=== PATIENT | female | born 1975 | race Caucasian/White ===

== ENCOUNTER → 2022-08-21 | Outpatient (CLI) | payer OTHER, SELFPAY ==
[2022-08-21 11:05] LABS: Anion Gap 5 (5-15); BUN 18 mg/dL (7-18); BUN/Creat Ratio 21.9 RATIO (10-20); Calcium,Total 8.9 mg/dL (8.5-10.1); Chloride 108 mmol/L (98-107); Cholesterol 196 mg/dL (200); Creatinine, Serum 0.82 mg/dL (0.55-1.02); EST Glomerular Filtration Rate 80 mL/min (>60); Est Glom Filt Rate - Afr Amer 97 mL/min (>60); Glucose 104 mg/dL (74-106); High Density Lipoprotein 42 mg/dL; Potassium 4.4 mmol/L (3.5-5.1); Sodium Level 137 mmol/L (136-145); Triglycerides 156 mg/dL; Very Low Density Lipoprotein 31 mg/dL (5-40)
== END | disposition home or self-care (01) ==
LOC: LAB 10:12
PROVIDERS: Referring Provider Internal Medicine Cardiovascular Disease; Visit Provider Internal Medicine Cardiovascular Disease
DX: I10 Essential (primary) hypertension (principal)
CPT/HCPCS: 36415; 80048; 80061

== ENCOUNTER → 2022-08-29 | Outpatient (CLI) | payer OTHER, SELFPAY ==
--- NOTE | 2022-08-29 06:17 | ECHOD_ITS ---
Reason For Study: RODRIGUEZ Procedure This was a 2D Doppler, Color Flow transthoracic echocardiogram. Exam performed in department. Left Ventricle Normal left ventricle. The left ventricular ejection fraction is 65 %. Right Ventricle Normal right ventricle. Atria The left and right atria are normal. Mitral Valve The mitral valve is structurally normal. No prolapse or stenosis seen. Tricuspid Valve Normal tricuspid valve. Aortic Valve Normal aortic valve. Pulmonic Valve The pulmonic valve is not well visualized. Great Vessels Normal sized aortic root. Pericardium/Pleural No pericardial effusion. MMode/2D Measurements & Calculations LVIDd: 4.6 cm IVSd: 1.0 cm Ao root diam: 3.2 cm LVIDs: 3.1 cm LVPWd: 0.91 cm FS: 31.8 % LAV(MOD-sp4): 42.9 ml LVAd ap4: 31.7 cm2 SV(MOD-sp4): 66.5 ml LVLd ap4: 7.9 cm EDV(MOD-sp4): 104.2 ml EDV(sp4-el): 108.8 ml LVAs ap4: 16.7 cm2 LVLs ap4: 6.2 cm ESV(MOD-sp4): 37.7 ml ESV(sp4-el): 38.0 ml EF(MOD-sp4): 63.8 % EF(sp4-el): 65.1 % SV(sp4-el): 70.8 ml LA A4 area: 16.0 cm2 LA dimension(2D): 3.7 cm RA A4 area: 13.0 cm2 Time Measurements MV dec time: 0.24 sec Doppler Measurements & Calculations MV E max jayjay: 83.3 cm/sec Lat Peak E' Jayjay: 14.3 cm/sec Med Peak E' Jayjay: 8.9 cm/sec MV A max jayjay: 80.8 cm/sec E/E' lat: 5.8 E/E' med: 9.4 MV E/A: 1.0 MV V2 max: 83.8 cm/sec Ao V2 max: 133.9 cm/sec MV max P.8 mmHg MV dec slope: 350.0 cm/sec2 Ao max P.2 mmHg MV V2 mean: 59.3 cm/sec Ao V2 mean: 94.0 cm/sec MV mean P.5 mmHg Ao mean P.0 mmHg MV V2 VTI: 29.1 cm Ao V2 VTI: 30.6 cm AV (velocity ratio): 0.81 LV V1 max: 118.0 cm/sec PA V2 max: 115.1 cm/sec LV V1 max P.6 mmHg PA V2 mean: 76.0 cm/sec LV V1 mean P.0 mmHg LV V1 mean: 81.0 cm/sec LV V1 VTI: 24.8 cm ECHO/Echo Complete Interpretation Summary The left ventricular ejection fraction is 65 %. Ordering Physician: Alisha Lemon Referring Physician: GORDO SILVA Performed By: Genia Doe RCS
--- NOTE | 2022-08-29 14:45 | STRESSREP_ITS ---
Stress Test Report Date: 08/29/2022 Procedure: Exercise tolerance test/imaging study Indications: Chest pain Consent: Per the patient Procedure: The patient exercised on a Yfn protocol for 6 achieving a peak heart rate of 144 bpm (81% predicted maximal heart rate) with a peak blood pressure 192/74 mmHg and a peak MET capacity of 7 METs. The baseline ECG demonstrated normal sinus rhythm. The peak exercise ECG demonstrated sinus tachycardia with no ischemic changes. There were no cardiac dysrhythmias pretest, during exercise, or recovery. The functional capacity was considered below average. There was complained of sharp chest pain during exercise. The examination was discontinued secondary to target heart rate being achieved. The patient was injected with 14.8 mCi of technetium 99m Cardiolite and subsequently rest SPECT Cardiolite nuclear imaging was obtained in the horizontal long, vertical long, and short axis views. Post-exercise, the patient was injected with 44.5 mCi of technetium 99m Cardiolite and subsequently stress SPECT Cardiolite nuclear imaging was obtained in the horizontal long, vertical long, and short axis views. A gated Cardiolite study at peak stress was obtained. Rest and stress SPECT Cardiolite nuclear imaging status post realignment, normalization, and attenuation correction, demonstrates the appearance of relative uniform tracer uptake and myocardial perfusion appearing within normal limits. There is end systolic thickening and brightening. The gated Cardiolite study demonstrates myocardial thickening and inward wall motion. The reported LVEF is 72%. Impression: 1. Technically adequate (percent predicted maximal heart rate greater than 85%) exercise tolerance test 2. Peak exercise ECG no ischemic changes 3. There were no cardiac dysrhythmias pretest, during exercise, or recovery 4. Rest and stress SPECT Cardiolite nuclear imaging demonstrate no fixed or reversible perfusion defects. 5. The gated Cardiolite study reports an LVEF of 72%. This note was generated with [employer] software. It may contain incorrect words, spelling, and punctuation that were not noted in checking the note before signing.
== END | disposition home or self-care (01) ==
LOC: CVS 06:17
PROVIDERS: PCP Internal Medicine; Visit Provider Internal Medicine Cardiovascular Disease
DX: R06.00 Dyspnea, unspecified (principal); R07.9 Chest pain, unspecified
CPT/HCPCS: 78452; 93017; 93306; A9500; A4216

== ENCOUNTER → 2022-09-28 | Outpatient (CLI) | payer OTHER, SELFPAY ==
[2022-09-28 12:15] LABS: Absolute Lymphocyte Count 1.37 X10^3/uL (0.83-4.51); Absolute Neutrophil Count 2.9 X10^3/uL (2.0-7.7); Basophil# 0.04 X10^3/uL; Basophil% 0.8 % (0-1); Eosinophil# 0.12 X10^3/uL; Eosinophils% 2.5 % (0-5); Hematocrit 34.5 % (37-47); Hemoglobin 10.7 g/dL (12.0-15.0); Lymphocyte # 1.37 X10^3/ul (0.83-4.51); Lymphocyte % 28.3 % (19-41); Mean Corpuscular Hgb 24.9 pg (27.0-32.0); Mean Corpuscular Volume 80.2 fL (81-99); Monocyte# 0.36 X10^3/uL; Monocyte% 7.4 % (0-10); NRBC Flagged by Analyzer 0 % (0-5); Neutrophil # 2.93 X10^3/uL (2.7-7.7); Neutrophil % 60.6 % (47-70); Platelet Count 342 K/mm3 (150-450); RBC Distribution Width CV 15.2 % (11.6-14.6); RBC Distribution Width SD 44.4 fl (35.1-43.9); White Blood Count 4.8 K/mm3 (4.4-11.0)
[2022-09-28 12:29] LABS: Anion Gap 5 (5-15); BUN 20 mg/dL (7-18); BUN/Creat Ratio 23.4 RATIO (10-20); Calcium,Total 9.8 mg/dL (8.5-10.1); Chloride 104 mmol/L (98-107); Creatinine, Serum 0.85 mg/dL (0.55-1.02); EST Glomerular Filtration Rate 77 mL/min (>60); Est Glom Filt Rate - Afr Amer 93 mL/min (>60); Glucose 110 mg/dL (74-106); Potassium 3.7 mmol/L (3.5-5.1); Sodium Level 137 mmol/L (136-145)
[2022-09-28 13:42] LABS: Vitamin D,25 Hydroxy 15.7 ng/mL
== END | disposition home or self-care (01) ==
LOC: BIMLAB 10:48
PROVIDERS: Internal Medicine Cardiovascular Disease; PCP Internal Medicine; Referring Provider Internal Medicine; Visit Provider Internal Medicine
DX: I10 Essential (primary) hypertension (principal); F41.9 Anxiety disorder, unspecified
CPT/HCPCS: 36415; 80048; 82306; 85025

== ENCOUNTER → 2022-10-05 | Outpatient (CLI) | payer OTHER, SELFPAY ==
--- NOTE | 2022-10-05 11:42 | BI_ITS ---
MAMMOGRAPHY - BILATERAL SCREENING 3-D TOMOSYNTHESIS REASON FOR EXAM: Female, 46 years old. Routine screening PERTINENT HISTORY: Grandmother with breast cancer.. TECHNIQUE: 2-D mammograms and 3-D Tomosynthesis of the breast (s) were performed. CAD was performed. COMPARISON: None. Baseline examination. FINDINGS: The breast composition is composed of scattered fibroglandular density. Scattered benign calcifications are seen. No dense spiculated masses or suspicious microcalcifications are identified. No architectural distortion is identified. There is no skin thickening or retraction. BI/SCRN MAMM (CAD)W/ESTEPHANIE BILAT IMPRESSION: No mammographic signs of malignancy. Routine yearly mammograms recommended. ASSESSMENT CATEGORY: BIRADS Category 2: Benign. A letter regarding these results will be sent to the patient by the facility within 30 days. FOLLOW UP RECOMMENDATION: Yearly follow up mammogram recommended. (A) Approximately 10% of breast cancers are not detected by mammography. A normal mammogram should not delay biopsy of a clinically suspicious abnormality. Electronically Signed: Nabil Dover MD at 12:48 EDT ,
== END | disposition home or self-care (01) ==
LOC: OPBI 11:41
PROVIDERS: PCP Internal Medicine; Referring Provider Internal Medicine; Visit Provider Internal Medicine
DX: Z12.31 Encounter for screening mammogram for malignant neoplasm of breast (principal)
CPT/HCPCS: 77063; 77067

== ENCOUNTER → 2023-08-16 | Outpatient (CLI) | payer BC, SELFPAY ==
--- OUTSIDE RECORDS SUMMARY | 2023-08-16 11:55 | XMS RPT_ITS | CCD ---
Author Name Unknown Address [address] [place] [address] Organization [facility] Care Team Providers Care Rn Faculty Name Role Phone Arlyn Gutierrez Unavailable Gutierrez Arlyn D Unavailable Unavailable Gutierrez Arlyn D Unavailable Unavailable Leann, Edin Unavailable Unavailable Leann, Edin Unavailable Unavailable Leann, Edin Unavailable Unavailable Leann, Edin Unavailable Unavailable Deeser, Alisha S Unavailable Unavailable Deeser, Alisha S Unavailable Unavailable No Doctor Assigned, Nodr Unavailable Unavail able Aden Mandeep Unavailable Unavailable Bitner, Mandeep Unavailable Unavailable No Doctor Assigned, Nodr Unavailable Unavail able Bitner, Mandeep Unavailable Unavailable Bitner, Mandeep Unavailable Unavailable No Doctor Assigned, Nodr Unavailable Unavail able Arlyn Gutierrez Primary Care Provider BRISEYDA WALKER Admitting Unavailable BRISEYDA WALKER Attending Unavailable JUAN A PAZ Referring Unav ailable GutierrezArlyn sanchez Primary Care Provider ARLYN GUTIERREZ Admitting Unavailable GUTIERREZARLYN SANCHEZ Primary Care Unavailable GUTIERREZARLYN SANCHEZ Admitting Unavailable GUTIERREZ, ARLYNMichell AVENDANO Primary Care Unavailable Free, Text Entry Unavailable Unavailable Jazzmine rEazo Unavailable Unavailabl e Gutierrez Arlyn RIVERA Primary Care Provider ARLYN GUTIERREZ Attending Unavailable ARLYN GUTIERREZ Primary Care Unavailable Rubén Garcia Unavailable Unavailable AYANA PEOPLES Attending Unavailab NOHEMI Mak Primary Care Unavailable SCARLETT SUMMERS Referring Unavailable NICHELLE PHILLIPS Attending Unavailable Allergies Allergy Classification Reported Allergen(s) Allergy Type Date of Onset Reaction(s) Facility (18 sources) ciprofloxacin; Translations: [Unknown] Propensity to adverse reactions to drug 05-22-20 12 [facility] (19 sources) penicillin; Translations: [penicillin] Propensity to adverse reactions to drug 08-13-19 24 [facility] (17 sources) penicillin g; Translations: [PENICILLIN G] Propensity to adverse reactions to drug 06-07-20 11 [facility] (13 sources) Penicillins; Translations: [PENICILLINS] Propensity to adverse reactions to drug [facility] (17 sources) sulfamethoxazole / trimethoprim; Translations: [SULFAMETHOXAZOLE-T RIMETHOPRIM] Propensity to adverse reactions to drug [facility] (14 sources) Sulfonamides (Antibiotic); Translations: [SULFA (SULFONAMIDE ANTIBIOTICS)] Propensity to adverse reactions to drug 06-07-20 11 [facility] (3 sources) Sulfonamides (Antibiotic); Translations: [sulfa drugs] Propensity to adverse reactions to drug (disorder) [facility], Hives/Urticari a [facility] Repository (2 sources) Penicillin Drug Allergy Hives/Urticari a [facility] (4 sources) Penicillins Propensity to adverse reactions to drug [facility] (4 sources) Sulfonamides (Antibiotic) Propensity to adverse reactions to drug 06-07-20 11 [facility] (1 source) ALLERGIES NOT ON FILE; Translations: [ALLERGIES NOT ON FILE] Propensity to adverse reactions (disorder) [facility] 2 Repository Medications Current Medications Medication Drug Class(es) Dates Sig (Normalized) Sig (Original) azithromycin 250 mg oral tablet (3 sources) Macrolide Antimicrobial Start: 10-25-2021 take 2 tablets by mouth once, then take 1 tablet by mouth once daily azithromycin 250 mg oral tablet ; Take 2 tabs (500mg) x 1 days, then 1 tab (250mg) once daily x 4 days Quantity: 6 Refills: 0 Ordered: 25-Oct-2021 Rubén Garcia Start: 25-Oct-2021 Generic Substitution Allowed Comments: Do not take dairy products, antacids, or iron preparations within one hour of this medication.Finish all this medication unless otherwise directed by prescriber. Completed/Discontinued Medications Medication Drug Class(es) Dates Sig (Normalized) Sig (Original) [id number] 200 actuat albuterol 0.09 mg/actuat metered dose inhaler (1 source) beta2-Adrenergic Agonist Start: 10-25-2021 take 2 puff(s) by inhalation twice daily as needed for cough albuterol 90 mcg/inh inhalation aerosol ; 2 puff(s) inhaled 2 times a day as needed for cough Quantity: 8.5 Refills: 0 Ordered: 25-Oct-2021 Rubén Garcia Start: 25-Oct-2021 Generic Substitution Allowed Comments: For inhalation only.It is very important that you take or use this exactly as directed. Do not skip doses or discontinue unless directed by your doctor.Obtain medical advice before taking any non-prescription drugs as some may affect the action of this medication.Shake well before use. Problems Active Problems Problem Classification Problem Date Documented Da te Episodic/Chronic Anxiety disorders (10 sources) Mixed anxiety and depressive disorder; Translations: [Anxiety disorder, unspecified] Onset: 05-25-2020 05-25-2020 Chronic Essential hypertension (18 sources) Hypertensive disorder; Translations: [Essential (primary) hypertension] 11-27-2017 Chronic Other connective tissue disease (2 sources) Pain in right foot; Translations: [Pain in right foot] Onset: 07-27-2023 Episodic Other lower respiratory disease (5 sources) Multiple nodules of lung; Translations: [Other nonspecific abnormal finding of lung field] Onset: 06-13-2021 05-05-2021 Episodic Other lower respiratory disease (2 sources) Shortness of breath; Translations: [Shortness of Breath] Onset: 08-13-2023 Episodic Other screening for suspected conditions (not mental disorders or infectious disease) (1 source) Abnormal radiologic density, nodular; Translations: [Abnormal findings on diagnostic imaging of other specified body structures] Chronic Other upper respiratory infections (2 sources) Upper respiratory infection 10-25-2021 Episodic Past or Other Problems Problem Classification Problem Date Documented Da te Episodic/Chronic Malaise and fatigue (7 sources) Fatigue; Translations: [Other fatigue] Onset: 12-17-2019 12-17-2019 Episodic Viral infection (4 sources) Disease caused by 2019-nCoV; Translations: [Other specified viral infection] Onset: 06-13-2021 05-05-2021 Episodic Results Test Name Value Interpretation Reference Range Facil ity Vital Signs Date Time Vital Sign Value Performing Clinician Facility 10-25-2021 13:26-0400 Body height 168 cm Text Entry [facility] 10-25-2021 [id number] Body temperature 97.88 [degF] Text Entry [facility] 10-25-2021 13:26-0400 Diastolic blood pressure 78 mm[Hg] Text Entry [facility] 10-25-2021 13:26-0400 Heart rate 74 /min Text Entry [facility] 10-25-2021 13:26-0400 SaO2% (BldA) [Mass fraction] 96 % Text Entry [facility] 10-25-2021 13:26-0400 Systolic blood pressure 129 mm[Hg] Text Entry [facility] 06-13-2021 10:48-0500 Body height 167.6 cm Arlyn Gutierrez [employer] WORK[employer] Work Phone: [facility] 06-13-2021 10:48-0500 Body mass index (BMI) [Ratio] 44.55 kg/m2 Arlyn Gutierrez [employer] WORK[employer] Work Phone: [facility] 06-13-2021 10:48-0500 Body temperature 97.39 [degF] Arlyn Gutierrez [employer] OUT WORKER Work Phone: [facility] 06-13-2021 10:48-0500 Body weight 125.19 kg Arlyn Yinon [employer] OUT WORKER Work Phone: [facility] 06-13-2021 10:48-0500 Diastolic blood pressure 77 mm[Hg] Arlyn Gutierrez [employer] OUT WORK[employer] Work Phone: [facility] 06-13-2021 10:48-0500 Heart rate 79 /min Arlyn Gutierrez [employer] OUT WORK[employer] Work Phone: [facility] 06-13-2021 10:48-0500 Respiratory rate 16 /min Arlyn Gutierrez [employer] OUT WORK[employer] Work Phone: [facility] 06-13-2021 10:48-0500 SaO2% (BldA) [Mass fraction] 98 % Arlyn Gutierrez [employer] OUT WORK[employer] Work Phone: [facility] 06-13-2021 10:48-0500 Systolic blood pressure 122 mm[Hg] Arlyn Gutierrez [employer] OUT WORKER Work Phone: [facility] 05-05-2021 23:30-0400 Diastolic blood pressure 83 mm[Hg] Text Entry [facility] 05-05-2021 23:30-0400 Heart rate 63 /min Text Entry [facility] 05-05-2021 23:30-0400 Respiratory rate 16 /min Text Entry [facility] 05-05-2021 23:30-0400 SaO2% (BldA) [Mass fraction] 98 % Text Entry [facility] 05-05-2021 23:30-0400 Systolic blood pressure 151 mm[Hg] Text Entry [facility] 05-05-2021 17:39-0400 Body height 167.6 cm Text Entry [facility] 05-05-2021 17:39-0400 Body temperature 98.06 [degF] Text Entry [facility] 05-05-2021 17:39-0400 Body weight 113.6 kg Text Entry [facility] 05-25-2020 15:46-0500 BP Diastolic 91 mm[Hg] Arlyn Gutierrez [facility] 05-25-2020 15:46-0500 BP Systolic 159 mm[Hg] Arlyn Gutierrez [facility] 05-25-2020 15:40-0500 BMI (Body Mass Index) 42.61 kg/m2 Arlyn Gutierrez [facility] 05-25-2020 15:40-0500 Body Temperature 98.1 [degF] Arlyn Gutierrez [facility] 05-25-2020 15:40-0500 Body weight 119.75 kg Arlyn Gutierrez [facility] 05-25-2020 15:40-0500 Height 167.6 cm Arlyn Gutierrez [facility] 05-25-2020 15:40-0500 Pulse (Heart Rate) 79 /min Arlyn Gutierrez [facility] 05-25-2020 15:40-0500 Pulse Oximetry 98 % Arlyn Gutierrez [facility] 05-25-2020 15:40-0500 Respiratory Rate 16 /min Arlyn Gutierrez [facility] 11-14-2018 10:08-0400 BMI (Body Mass Index) 39.22 kg/m2 [facility] 11-14-2018 10:08-0400 Body Temperature 97.9 [degF] [facility] 11-14-2018 10:08-0400 BP Diastolic 81 mm[Hg] [facility] 11-14-2018 10:08-0400 BP Systolic 127 mm[Hg] [facility] 11-14-2018 10:08-0400 Height 167.6 cm [facility] 11-14-2018 10:08-0400 Pulse (Heart Rate) 78 /min [facility] 11-14-2018 10:08-0400 Pulse Oximetry 96 % [facility] 11-14-2018 10:08-0400 Respiratory Rate 14 /min [facility] 11-14-2018 10:08-0400 Weight 110.22 kg [facility] 12-04-2017 11:37-0400 BMI (Body Mass Index) 41.64 kg/m2 [facility] 12-04-2017 11:37-0400 BP Diastolic 88 mm[Hg] [facility] 12-04-2017 11:37-0400 BP Systolic 149 mm[Hg] [facility] 12-04-2017 11:37-0400 Height 167.6 cm [facility] 12-04-2017 11:37-0400 Pulse (Heart Rate) 87 /min [facility] 12-04-2017 11:37-0400 Weight 117.03 kg [facility] 11-27-2017 14:20-0400 BMI (Body Mass Index) 41.74 kg/m2 [facility] 11-27-2017 14:20-0400 BP Diastolic 96 mm[Hg] [facility] 11-27-2017 14:20-0400 BP Systolic 154 mm[Hg] [facility] 11-27-2017 14:20-0400 Height 167.6 cm [facility] 11-27-2017 14:20-0400 Pulse (Heart Rate) 89 /min [facility] 11-27-2017 14:20-0400 Pulse Oximetry 97 % [facility] 11-27-2017 14:20-0400 Weight 117.3 kg Edin Noriega [facility] 11-15-2017 14:41-0400 BP Diastolic 90 mm[Hg] Arlyn Gutierrez [facility] 11-15-2017 14:41-0400 BP Systolic 140 mm[Hg] Arlyn Gutierrez [facility] 11-15-2017 14:41-0400 Pulse (Heart Rate) 96 /min Arlyn Gutierrez [facility] 11-15-2017 14:41-0400 Weight 117.48 kg Arlyn Gutierrez [facility] Encounters Encounter Date Encounter Type Care Provider Facility Start: 08-13-2023 End: 08-13-2023 ambulatory [facility] Ambulatory Start: 07-27-2023 End: 07-28-2023 ambulatory SCARLETT Cordoba [facility] Start: 12-03-2022 End: 12-03-2022 Emergency department patient visit [facility] Start: 11-09-2021 Orders Only Arlyn Avendano Cynthia erson [employer] OUT WORKER Work Phone: [facility] Primary Care Procedures Date Procedure Procedure Detail Performing Clinician Start: 07-27-2023 XR FOOT RIGHT 3+ VIEWS SCARLETT SUMMERS Start: 05-05-2021 End: 05-05-2021 EKG impression Murtaza Huston Start: 12-07-2017 End: 12-07-2017 Tte w/doppler, complete Edin Noriega Work Phone: Start: 12-04-2017 End: 12-04-2017 Cardiovascular stress test Edin Noriega Work Phone: Start: 07-23-2016 Microscopic observat ion [Identifier] in Cervix by Cyto stain Arlyn Gutierrez Plan of Treatment Date Care Activity Detail Author Start: 06-13-2022 COVID-19 Vaccine (1) COVID-19 Vaccin e (1) [facility] Payers Date Payer Category Payer Unknown [id number] 2021 Unknown 2021 Unknown [id number] 2017 Private Health Insurance 2017 Unknown [id number] 1975 Unknown [id number] 1975 Unknown [id number] 1975 Unknown [id number] 1975 Unknown [id number] 1975 Unknown [id number] Social History Date Type Detail Facility Start: 11-15-2017 End: 12-04-2017 Tobacco smoking status HIIS Never smoker [facility] Start: 1975 Sex Assigned At Not on file [facility] Start: 11-15-2017 End: 05-25-2020 Tobacco use and exposure Never used [facility] Start: 05-25-2020 End: 06-13-2021 Alcohol intake Current non-drinker of alcohol (finding) [facility] Start: 12-17-2019 End: 05-25-2020 History SDOH Social Connections Get Together 2 [facility] Start: 05-25-2020 [facility] Start: 12-17-2019 End: 05-25-2020 History SDOH Food Worry 1 [facility] Exposure to SARS-CoV -2 (event) Not sure [facility] Tobacco smoking consumption unknown [facility] Exposure to SARS-CoV -2 (event) Yes [facility] Note 06-13-2021 Assessment & Plan Note - Arlyn Gutierrez CNP - 06/13/2021 11:37 AM ESTAssessment & Plan Note - Arlyn Gutierrez CNP - 06/13/2021 11:36 AM EST Note Date & Type Note Facility 06-13-2021 Miscellaneous Notes Associated Problem(s): Anxiety and depression Stable sertraline managing symptoms well. Continue current dose of 50 Mg daily Associated Problem(s): Hypertension Stable well controlled in office today Have fasting labs done prior to next visit Associated Problem(s): Pulmonary nodules Lung nodules seen on CT at [facility] when diagnosed with Covid. Most likely from Covid but to have repeat scan to make sure. Will obtain ER records and proceed from there. Associated Problem(s): COVID-19 covid infection in April 2021 and presented to [facility]. She still endorses fatigue and shortness of breath with moderate activity but getting better. documented in this encounter [facility] Instructions 06-13-2021 Patient Instructions Note Date & Type Note Facility 06-13-2021 Instructions Arlyn Gutierrez CNP - 06/13/2021 11:20 AM EST Images from the original note were not included. Problem List Items Addressed This Visit Cardiovascular and Mediastinum Hypertension Stable well controlled in office today Have fasting labs done prior to next visit Relevant Medications labetaloL (NORMODYNE) 200 MG tablet Other Relevant Orders CBC and Differential Comprehensive Metabolic Panel Lipid Panel Other Anxiety and depression Stable sertraline managing symptoms well. Continue current dose of 50 Mg daily Relevant Medications sertraline (ZOLOFT) 50 MG tablet Wellness examination - Primary Pulmonary nodules Lung nodules seen on CT at [facility] when diagnosed with Covid. Most likely from Covid but to have repeat scan to make sure. Will obtain ER records and proceed from there. COVID-19 covid infection in April 2021 and presented to [facility]. She still endorses fatigue and shortness of breath with moderate activity but getting better. If any referrals were placed at today's visit the patient was instructed to call the office if they havn't heard anything about the referral within 2 weeks of today's visit. For any new medications prescribed today, patient was educated about indications for the medication, how to take the medication and potential side effects of the medications. Well Visit, Ages 18 to 50: Care Instructions Overview Well visits can help you stay healthy. Your doctor has checked your overall health and may have suggested ways to take good care of yourself. Your doctor also may have recommended tests. At home, you can help prevent illness with healthy eating, regular exercise, and other steps. Follow-up care is a part of your treatment and safety. Be sure to make and go to all appointments, and call your doctor if you are having problems. It's also a good idea to know your test results and keep a list of the medicines you take. How can you care for yourself at home? Get screening tests that you and your doctor decide on. Screening helps find diseases before any symptoms appear. Eat healthy foods. Choose fruits, vegetables, whole grains, protein, and low-fat dairy foods. Limit fat, especially saturated fat. Reduce salt in your diet. Limit alcohol. If you are a man, have no more than 2 drinks a day or 14 drinks a week. If you are a woman, have no more than 1 drink a day or 7 drinks a week. Get at least 30 minutes of physical activity on most days of the week. Walking is a good choice. You also may want to do other activities, such as running, swimming, cycling, or playing tennis or team sports. Discuss any changes in your exercise program with your doctor. Reach and stay at a healthy weight. This will lower your risk for many problems, such as obesity, diabetes, heart disease, and high blood pressure. Do not smoke or allow others to smoke around you. If you need help quitting, talk to your doctor about stop-smoking programs and medicines. These can increase your chances of quitting for good. Care for your mental health. It is easy to get weighed down by worry and stress. Learn strategies to manage stress, like deep breathing and mindfulness, and stay connected with your family and community. If you find you often feel sad or hopeless, talk with your doctor. Treatment can help. Talk to your doctor about whether you have any risk factors for sexually transmitted infections (STIs). You can help prevent STIs if you wait to have sex with a new partner (or partners) until you've each been tested for STIs. It also helps if you use condoms (male or female condoms) and if you limit your sex partners to one person who only has sex with you. Vaccines are available for some STIs, such as HPV. Use control if it's important to you to prevent . Talk with your doctor about the choices available and what might be best for you. If you think you may have a problem with alcohol or drug use, talk to your doctor. This includes prescription medicines (such as amphetamines and opioids) and illegal drugs (such as cocaine and methamphetamine). Your doctor can help you figure out what type of treatment is best for you. Protect your skin from too much sun. When you're outdoors from 10 a.m. to 4 p.m., stay in the shade or cover up with clothing and a hat with a wide brim. Wear sunglasses that block UV rays. Even when it's cloudy, put broad-spectrum sunscreen (SPF 30 or higher) on any exposed skin. See a dentist one or two times a year for checkups and to have your teeth cleaned. Wear a seat belt in the car. When should you call for help? Watch closely for changes in your health, and be sure to contact your doctor if you have any problems or symptoms that concern you. Where can you learn more? Log into your personal health record on https://CytoPherxt.Food52 and enter P072 in the Education box to learn more about Well Visit, Ages 18 to 50: Care Instructions. Current as of: September 02, 2020 Content Version: 13.0 [email or web address]. Care instructions adapted under license by your healthcare professional. If you have questions about a medical condition or this instruction, always ask your healthcare professional. [email or web address] disclaims any warranty or liability for your use of this information. documented in this encounter [facility] History of Present illness Narrative 06-13-2021 Arlyn Gutierrez CNP - 06/13/2021 11:00 AM EST Note Date & Type Note Facility 06-13-2021 History of Presen t illness Narrative OFFICE VISIT PROGRESS NOTE HPI Wellness Exam HTN- well controlled in office today, no changes required Anxiety/depression-sertraline working well controlling her symptoms. Covid + @ 1 month ago went to [facility] and was told she had multiple lung nodules and may need follow up. We will call for records and proceed from there. She still endorses SOB with moderate activity and fatigue MMG-overdue, encouraged to call hospital to schedule Pap/pelvic- [facility]. Encouraged to call [facility] for exam Problem List Items Addressed This Visit Cardiovascular and Mediastinum Hypertension Stable well controlled in office today Have fasting labs done prior to next visit Relevant Medications labetaloL (NORMODYNE) 200 MG tablet Other Relevant Orders CBC and Differential Comprehensive Metabolic Panel Lipid Panel Other Anxiety and depression Stable sertraline managing symptoms well. Continue current dose of 50 Mg daily Relevant Medications sertraline (ZOLOFT) 50 MG tablet Wellness examination - Primary Pulmonary nodules Lung nodules seen on CT at [facility] when diagnosed with Covid. Most likely from Covid but to have repeat scan to make sure. Will obtain ER records and proceed from there. COVID-19 covid infection in April 2021 and presented to [facility]. She still endorses fatigue and shortness of breath with moderate activity but getting better. Vitals: 06/13/21 1048 BP: 122/77 BP Location: Right arm Patient Position: Sitting BP Cuff Size: X-large Adult Pulse: 79 Resp: 16 Temp: 97.4 F (36.3 C) TempSrc: Temporal SpO2: 98% Weight: 125.2 kg (276 lb) Height: 5' 6 Body mass index is 44.55 kg/m . Current Outpatient Medications Medication Sig Dispense Refill labetaloL (NORMODYNE) 200 MG tablet Take 2 (two) tablets (400 mg total) by mouth 2 (two) times a day . 360 tablet 3 sertraline (ZOLOFT) 50 MG tablet Take 1 (one) tablet (50 mg total) by mouth daily . 90 tablet 3 No current facility-administered medications for this visit. Review of Systems: Review of Systems Constitutional: Positive for fatigue. Negative for fever. HENT: Negative for congestion, dental problem, mouth sores, nosebleeds, trouble swallowing and voice change. Eyes: Negative for photophobia, pain, redness and visual disturbance. Respiratory: Positive for cough and shortness of breath. Negative for chest tightness and wheezing. Cardiovascular: Negative for chest pain, palpitations and leg swelling. Gastrointestinal: Negative for abdominal pain and blood in stool. Genitourinary: Negative for difficulty urinating and frequency. Musculoskeletal: Negative for arthralgias and myalgias. Skin: Negative for rash. Neurological: Negative for dizziness, weakness, light-headedness and headaches. Psychiatric/Behavioral: Negative for agitation and confusion. Physical Exam Physical Exam Constitutional: Appearance: She is well-developed and well-nourished. HENT: Head: Normocephalic and atraumatic. Right Ear: External ear normal. Left Ear: External ear normal. Nose: Nose normal. Eyes: Conjunctiva/sclera: Conjunctivae normal. Pupils: Pupils are equal, round, and reactive to light. Neck: Thyroid: No thyromegaly. Cardiovascular: Rate and Rhythm: Normal rate and regular rhythm. Heart sounds: Normal heart sounds. No murmur heard. Pulmonary: Effort: Pulmonary effort is normal. No respiratory distress. Breath sounds: Normal breath sounds. No wheezing. Abdominal: General: Bowel sounds are normal. Palpations: Abdomen is soft. Musculoskeletal: General: No edema. Normal range of motion. Cervical back: Normal range of motion and neck supple. Skin: General: Skin is warm and dry. Neurological: Mental Status: She is alert and oriented to person, place, and time. Psychiatric: Mood and Affect: Mood and affect normal. Behavior: Behavior normal. The following portions of the patient's history were reviewed and updated as appropriate: allergies, current medications and problem list. Family History Problem Relation Age of Onset Hyperlipidemia Mother Arthritis Mother Hyperlipidemia Father Heart disease Father Social History Socioeconomic History Marital status: Tobacco Use Smoking status: Never Smoker Smokeless tobacco: Never Used Vaping Use Vaping Use: Never used Substance and Sexual Activity Alcohol use: No Past Surgical History: Procedure Laterality Date TONSILLECTOMY Allergies Allergen Reactions Ciprofloxacin Hives Penicillin Penicillin G Hives Penicillins Sulfa (Sulfonamide Antibiotics) Hives Sulfamethoxazole-Trimethoprim OARRS/NARxCHECK Report Received and Assessed: No data found Date controlled substance agreement signed: No data found Date of last drug screen: No data found Functional Assessment: No data found If any referrals were placed at today's visit the patient was instructed to call the office if they havn't heard anything about the referral within 2 weeks of today's visit. For any new medications prescribed today, patient was educated about indications for the medication, how to take the medication and potential side effects of the medications. documented in this encounter [facility] Note 06-06-2021 Telephone Encounter - Zoe Valadez MA - 06/06/2021 8:15 AM ESTTelephone Encounter - oZe Valadez MA - 06/06/2021 8:14 AM EST Note Date & Type Note Facility 06-06-2021 Miscellaneous Notes Patient just needs enough to get to appointment on the 06/13/2021. ----- Message from Eleanor Ortiz sent at 06/06/2021 8:07 AM EST ----- Regarding: Rx refill - PT JUST RAN OUT AND NEEDS SOON POSSIBLE Contact: DEEPTI/SELF MEDICATION REFILL REQUEST: PT IS OUT AND JUST NEEDS A REFILL LAST TILL HER APPOINTMENT ON 06/13 PCP: Arlyn Gutierrez CNP Patient called 06/06/21 and is requesting a medication refill for sertraline (ZOLOFT) 50 MG [id number]/ Sig - Route: Take 1 (one) tablet (50 mg total) by mouth daily . - Oral Sent to pharmacy as: sertraline 50 mg tablet (ZOLOFT) E-Prescribing Status: Receipt confirmed by pharmacy (05/19/2021 4:15 PM EDT) . labetaloL (NORMODYNE) 200 MG Sig - Route: Take 2 (two) tablets (400 mg total) by mouth 2 (two) times a day . - Oral Sent to pharmacy as: labetaloL 200 mg tablet (NORMODYNE) E-Prescribing Status: Receipt confirmed by pharmacy (05/19/2021 4:15 PM EDT) This was confirmed from the current medication list found in the patients chart. Supply Requested: # of days: 30 days Method of receiving: Send to pharmacy Last set of flowsheet rows for OARRS report: OARRS/NARxCHECK Report Received and Assessed: No data found Date controlled substance agreement signed: No data found Date of last drug screen: No data found Functional Assessment: No data found Will this refill be sent to the preferred pharmacy listed below? Yes Preferred pharmacies: [facility] [address] [place], [place] [id number] Pt Call Back Number Patient call back message sent to the [facility]. Eleanor Ortiz documented in this encounter [facility] Note 05-19-2021 Telephone Encounter - Monica Hewitt LPN - 05/19/2021 8:43 AM EDT Note Date & Type Note Facility 05-19-2021 Miscellaneous Notes ----- Message from Tarsha Witt sent at 05/19/2021 8:32 AM EDT ----- Regarding: Rx refill...please see note. Contact: self MEDICATION REFILL REQUEST: PCP: Arlyn Gutierrez CNP Patient called 05/19/21 and is requesting a medication refill for labetaloL (NORMODYNE) 200 MG tablet This was confirmed from the current medication list found in the patients chart. Supply Requested: # of days: 90 days Method of receiving: Send to pharmacy Last set of flowsheet rows for OARRS report: OARRS/NARxCHECK Report Received and Assessed: No data found Date controlled substance agreement signed: No data found Date of last drug screen: No data found Functional Assessment: No data found Will this refill be sent to the preferred pharmacy listed below? Yes Preferred pharmacies: [facility] [address] [place], [place] [id number] Pt Call Back Number Work Phone Not on file. Note: pt requested refill on 05-16-21. Still has not been refilled. Pt. Has no medication on hand. Patient call back message sent to the [facility]. Tarsha Witt documented in this encounter [facility] Evaluation note Note Date & Type Note Facility documented in this encounter [facility] Evaluation note Note Date & Type Note Facility documented in this encounter [facility] Evaluation note Note Date & Type Note Facility documented in this encounter [facility] Evaluation note Note Date & Type Note Facility documented in this encounter [facility] Assessments Diagnosis Chest pain, unspecified type Essential hypertension Unspecified essential hypertension Diagnosis Chest pain, unspecified type - Primary Essential hypertension Unspecified essential hypertension Diagnosis Hypertension, unspecified ty pe - Primary Chest pain, unspecified type Diagnosis Hypertension, unspecified type Diagnosis Anxiety and depression- Primary Hypertension, unspecified type Diagnosis Fatigue, unspecified type- Primary Instructions * Patient Instructions - Arlyn Gutierrez CNP - 11/15/2017 6:39 PM EDT Formatting of this note may be different from the original. High Blood Pressure: Care Instructions Your Care Instructions If your blood pressure is usually above 130/80, you have high blood pressure, or hypertension. Thatmeans the top number is 130 or higher or the bottom number is 80 or higher, or both. Despite what a lot of people think, high blood pressure usually doesn't cause headaches or make youfeel dizzy or lightheaded. It usually has no symptoms. But it does increase your risk for heart attack, stroke, and kidney or eye damage. The higher your blood pressure, the more your risk increases. Your doctor will give you a goal for your blood pressure. Your goal will be based on your health and your age. Lifestyle changes, such as eating healthy and being active, are always important to help lower blood pressure. You might also take medicine to reach your blood pressure goal. Follow-up care is a part of your treatment and safety. Be sure to make and go to all appointments, and call your doctor if you are having problems. It's also a good idea to know your test resultsand keep a list of the medicines you take. How can you care for yourself at home? Medical treatment If you stop taking your medicine, your blood pressure will go back up. You may take one or more types of medicine to lower your blood pressure. Be safe with medicines. Take your medicine exactly as prescribed. Call your doctor if you think you are having a problem with your medicine. Talk to your doctor before you start taking aspirin every day. Aspirin can help certain people lower their risk of a heart attack or stroke. But taking aspirin isn't right for everyone, because it can cause serious bleeding. See your doctor regularly. You may need to see the doctor more often at first or until your blood pressure comes down. If you are taking blood pressure medicine, talk to your doctor before you take decongestants or anti-inflammatory medicine, such as ibuprofen. Some of these medicines can raise blood pressure. Learn how to check your blood pressure at home. Lifestyle changes Stay at a healthy weight. This is especially important if you put on weight around the waist. Losing even 10 pounds can help you lower your blood pressure. If your doctor recommends it, get more exercise. Walking is a good choice. Bit by bit, increase theamount you walk every day. Try for at least 30 minutes on most days of the week. You also may want to swim, bike, or do other activities. Avoid or limit alcohol. Talk to your doctor about whether you can drink any alcohol. Try to limit how much sodium you eat to less than 2,300 milligrams (mg) a day. Your doctor may ask you to try to eat less than 1,500 mg a day. Eat plenty of fruits (such as bananas and oranges), vegetables, legumes, whole grains, and low-fat dairy products. Lower the amount of saturated fat in your diet. Saturated fat is found in animal products such as milk, cheese, and meat. Limiting these foods may help you lose weight and also lower your risk for heart disease. Do not smoke. Smoking increases your risk for heart attack and stroke. If you need help quitting, talk to your doctor about stop-smoking programs and medicines. These can increase your chances of quitting for good. When should you call for help? Call 911 anytime you think you may need emergency care. This may mean having symptoms that suggest that your blood pressure is causing a serious heart or blood vessel problem. Your blood pressure maybe over 180/110. ?For example, call 911 if: ? You have symptoms of a heart attack. These may include: Chest pain or pressure, or a strange feeling in the chest. Sweating. Shortness of breath. Nausea or vomiting. Pain, pressure, or a strange feeling in the back, neck, jaw, or upper belly or in one or both shoulders or arms. Lightheadedness or sudden weakness. A fast or irregular heartbeat. ? You have symptoms of a stroke. These may include: Sudden numbness, tingling, weakness, or loss of movement in your face, arm, or leg, especially on only one side of your body. Sudden vision changes. Sudden trouble speaking. Sudden confusion or trouble understanding simple statements. Sudden problems with walking or balance. A sudden, severe headache that is different from past headaches. ? You have severe back or belly pain. ?Do not wait until your blood pressure comes down on its own. Get help right away. ?Call your doctor now or seek immediate care if: ? Your blood pressure is much higher than normal (such as 180/110 or higher), but you don't have symptoms. ? You think high blood pressure is causing symptoms, such as: Severe headache. Blurry vision. ?Watch closely for changes in your health, and be sure to contact your doctor if: ? Your blood pressure measures 140/90 or higher at least 2 times. That means the top number is 140 or higher or the bottom number is 90 or higher, or both. ? You think you may be having side effects from your blood pressure medicine. ? Your blood pressure is usually normal, but it goes above normal at least 2 times. Where can you learn more? Log into your personal health record on https://CytoPherxt.Food52 and enter X567 in the Education box to learn more about High Blood Pressure: Care Instructions. Current as of: June 27, 2017 Content Version: 05.28 [email or web address]. Care instructions adapted under license by your healthcare professional. If you have questions about a medical condition or this instruction, always ask your healthcare professional. [email or web address] disclaims any warranty or liability for your use of this information. Chest Pain: Care Instructions Your Care Instructions There are many things that can cause chest pain. Some are not serious and will get better on their own in a few days. But some kinds of chest pain need more testing and treatment. Your doctor may have recommended a follow-up visit in the next 8 to 12 hours. If you are not getting better, you may need more tests or treatment. Even though your doctor has released you, you still need to watch for any problems. The doctor carefully checked you, but sometimes problems can develop later. If you have new symptoms or if your symptoms do not get better, get medical care right away. If you have worse or different chest pain or pressure that lasts more than 5 minutes or you passed out (lost consciousness), call 911 or seek other emergency help right away. A medical visit is only one step in your treatment. Even if you feel better, you still need to do what your doctor recommends, such as going to all suggested follow-up appointments and taking medicines exactly as directed. This will help you recover and help prevent future problems. How can you care for yourself at home? Rest until you feel better. Take your medicine exactly as prescribed. Call your doctor if you think you are having a problem with your medicine. Do not drive after taking a prescription pain medicine. When should you call for help? Call 911 if: ? You passed out (lost consciousness). ? You have severe difficulty breathing. ? You have symptoms of a heart attack. These may include: Chest pain or pressure, or a strange feeling in your chest. Sweating. Shortness of breath. Nausea or vomiting. Pain, pressure, or a strange feeling in your back, neck, jaw, or upper belly or in one or both shoulders or arms. Lightheadedness or sudden weakness. A fast or irregular heartbeat. After you call 911, the telescope operator may tell you to chew 1 adult-strength or 2 to 4 low-dose aspirin. Wait for an ambulance. Do not try to drive yourself. ?Call your doctor today if: ? You have any trouble breathing. ? Your chest pain gets worse. ? You are dizzy or lightheaded, or you feel like you may faint. ? You are not getting better as expected. ? You are having new or different chest pain. Where can you learn more? Log into your personal health record on https://CytoPherxt.Food52 and enter A120 in the Education box to learn more about Chest Pain: Care Instructions. Current as of: June 11, 2017 Content Version: .[id number] [email or web address]. Care instructions adapted under license by your healthcare professional. If you have questions about a medical condition or this instruction, always ask your healthcare professional. [email or web address] disclaims any warranty or liability for your use of this information. in this encounter* Patient Instructions* Arlyn Gutierrez CNP - 11/14/2018 10:21 AM EDT Problem List Items Addressed This Visit Hypertension Continue meds, limit salt intake, increase activity, watch diet, continue monitoring BP at home with goal of 130/80 or less Relevant Medications labetalol (NORMODYNE) 200 MG tablet Other Relevant Orders CBC and Differential Comprehensive Metabolic Panel Lipid Panel If any referrals were placed at today's visit the patient was instructed to call the office if theyhavn't heard anything about the referral within 2 weeks of today's visit. For any new medications prescribed today, patient was educated about indications for the medication, how to take the medication and potential side effects of the medications. documented in this encounter* Patient Instructions* Arlyn Gutierrez CNP - 05/25/2020 4:17 PM EST Problem List Items Addressed This Visit Cardiovascular and Mediastinum Hypertension Increase labetalol to 400 mg twice a day. Continue to monitor blood pressure and heart rate. If heart rate goes below 60 notify office. If blood pressure < 100/60 notify office Relevant Medications labetaloL (NORMODYNE) 200 MG tablet Other Anxiety and depression - Primary Start sertraline 50 mg 1/2 tab for first 7-10 days then increase to a whole tab daily. If have any intolerable side effects notify office. Relevant Medications sertraline (ZOLOFT) 50 MG tablet If any referrals were placed at today's visit the patient was instructed to call the office if theyhavn't heard anything about the referral within 2 weeks of today's visit. For any new medications prescribed today, patient was educated about indications for the medication, how to take the medication and potential side effects of the medications. 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 Current Outpatient Medications Medication Sig Dispense Refill TYRA 0.35 mg tablet labetalol (NORMODYNE) 200 MG tablet Take 1 (one) tablet (200 mg total) by mouth daily . 90 tablet 3 No current facility-administered medications for this visit. Review of Systems: Review of Systems Physical Exam Physical Exam The following portions of the patient's history were reviewed and updated as appropriate: allergies, current medications and problem list. Family History Problem Relation Age of Onset Hyperlipidemia Mother Arthritis Mother Hyperlipidemia Father Heart disease Father Social History Socioeconomic History Marital status: Spouse name: None Number of children: None Years of education: None Highest education level: None Social Needs Financial resource strain: None Food insecurity - worry: None Food insecurity - inability: None Transportation needs - medical: None Transportation needs - non-medical: None Occupational History None Tobacco Use Smoking status: Never Smoker Smokeless tobacco: Never Used Substance and Sexual Activity Alcohol use: No Drug use: None Sexual activity: None Other Topics Concern None Social History Narrative None Past Surgical History: Procedure Laterality Date TONSILLECTOMY Allergies Allergen Reactions Ciprofloxacin Hives Penicillin Penicillin G Hives Penicillins Sulfa (Sulfonamide Antibiotics) Hives Sulfamethoxazole-Trimethoprim No data recorded If any referrals were placed at today's visit the patient was instructed to call the office if theyhavn't heard anything about the referral within 2 weeks of today's visit. For any new medications prescribed today, patient was educated about indications for the medication, how to take the medication and potential side effects of the medications. documented in this encounter* Arlyn Gutierrez CNP - 05/25/2020 3:49 PM EST OFFICE VISIT PROGRESS NOTE HPI HTN-not at goal, monitors at home and most are > 140/90. She has had headaches related to BP as well. Anxiety/depression-anxiety is causing insomnia, constant worry, nightmares, and irritability. This has worsened since stopping control. She does not want to restart OCP Problem List Items Addressed This Visit Cardiovascular and Mediastinum Hypertension Increase labetalol to 400 mg twice a day. Continue to monitor blood pressure and heart rate. If heart rate goes below 60 notify office. If blood pressure < 100/60 notify office Relevant Medications labetaloL (NORMODYNE) 200 MG tablet Other Anxiety and depression - Primary Start sertraline 50 mg 1/2 tab for first 7-10 days then increase to a whole tab daily. If have any intolerable side effects notify office. Relevant Medications sertraline (ZOLOFT) 50 MG tablet Vitals: 05/25/20 1540 05/25/20 1546 BP: (!) 160/102 (!) 159/91 BP Location: Left arm Left arm Patient Position: Sitting Sitting BP Cuff Size: X-large Adult X-large Adult Pulse: 79 Resp: 16 Temp: 98.1 F (36.7 C) TempSrc: Oral SpO2: 98% Weight: 119.7 kg (264 lb) Height: 5' 6 Body mass index is 42.61 kg/m . Current Outpatient Medications Medication Sig Dispense Refill labetaloL (NORMODYNE) 200 MG tablet Take 2 (two) tablets (400 mg total) by mouth 2 (two) times a day . 180 tablet 3 sertraline (ZOLOFT) 50 MG tablet Take 1 (one) tablet (50 mg total) by mouth daily . 30 tablet 11 No current facility-administered medications for this visit. Review of Systems: Review of Systems Constitutional: Negative for fatigue and fever. HENT: Negative for congestion, dental problem, mouth sores, nosebleeds, trouble swallowing and voice change. Eyes: Negative for photophobia, pain, redness and visual disturbance. Respiratory: Negative for cough, chest tightness, shortness of breath and wheezing. Cardiovascular: Negative for chest pain, palpitations and leg swelling. Gastrointestinal: Negative for abdominal pain and blood in stool. Genitourinary: Negative for difficulty urinating and frequency. Musculoskeletal: Negative for arthralgias and myalgias. Skin: Negative for rash. Neurological: Positive for headaches. Negative for dizziness, weakness and light-headedness. Psychiatric/Behavioral: Positive for dysphoric mood. Negative for agitation and confusion. The patient is nervous/anxious. Physical Exam Physical Exam Constitutional: She is oriented to person, place, and time. She appears well- developed and well-nourished. HENT: Head: Normocephalic and atraumatic. Right Ear: External ear normal. Left Ear: External ear normal. Nose: Nose normal. Eyes: Pupils are equal, round, and reactive to light. Conjunctivae are normal. Neck: Normal range of motion. Neck supple. No thyromegaly present. Cardiovascular: Normal rate, regular rhythm and normal heart sounds. No murmur heard. Pulmonary/Chest: Effort normal and breath sounds normal. No respiratory distress. She has no wheezes. Musculoskeletal: Normal range of motion. General: No edema. Neurological: She is alert and oriented to person, place, and time. Skin: Skin is warm and dry. Psychiatric: She has a normal mood and affect. Her behavior is normal. The following portions of the patient's history were reviewed and updated as appropriate: allergies, current medications and problem list. Family History Problem Relation Age of Onset Hyperlipidemia Mother Arthritis Mother Hyperlipidemia Father Heart disease Father Social History Socioeconomic History Marital status: Spouse name: Not on file Number of children: Not on file Years of education: Not on file Highest education level: Not on file Occupational History Not on file Social Needs Financial resource strain: Not hard at all Food insecurity Worry: Never true Inability: Never true Transportation needs Medical: No Non-medical: No Tobacco Use Smoking status: Never Smoker Smokeless tobacco: Never Used Substance and Sexual Activity Alcohol use: No Drug use: Not on file Sexual activity: Not on file Lifestyle Physical activity Days per week: Not on file Minutes per session: Not on file Stress: Not on file Relationships Social connections Talks on phone: Not on file Gets together: Once a week Attends scientologist service: Not on file Active member of club or organization: Not on file Attends meetings of clubs or organizations: Not on file Relationship status: Not on file Other Topics Concern Not on file Social History Narrative Not on file Past Surgical History: Procedure Laterality Date TONSILLECTOMY Allergies Allergen Reactions Ciprofloxacin Hives Penicillin Penicillin G Hives Penicillins Sulfa (Sulfonamide Antibiotics) Hives Sulfamethoxazole-Trimethoprim OARRS/NARxCHECK Report Received and Assessed: No data found Date controlled substance agreement signed: No data found Date of last drug screen: No data found Functional Assessment: No data found If any referrals were placed at today's visit the patient was instructed to call the office if theyhavn't heard anything about the referral within 2 weeks of today's visit. For any new medications prescribed today, patient was educated about indications for the medication, how to take the medication and potential side effects of the medications. * Nahed Peres MA - 05/25/2020 3:42 PM EST [facility] [place] documented in this encounter* Arlyn Gutierrez CNP - 09/29/2020 5:23 PM EST OFFICE VISIT PROGRESS NOTE HPI fatigue Problem List Items Addressed This Visit Other Fatigue - Primary Relevant Orders CBC and Differential TSH Comprehensive Metabolic Panel There were no vitals filed for this visit. There is no height or weight on file to calculate BMI. Current Outpatient Medications Medication Sig Dispense Refill labetaloL (NORMODYNE) 200 MG tablet Take 2 (two) tablets (400 mg total) by mouth 2 (two) times a day . 180 tablet 3 sertraline (ZOLOFT) 50 MG tablet Take 1 (one) tablet (50 mg total) by mouth daily . 30 tablet 11 No current facility-administered medications for this visit. Review of Systems: Review of Systems Physical Exam Physical Exam The following portions of the patient's history were reviewed and updated as appropriate: allergies, current medications and problem list. Family History Problem Relation Age of Onset Hyperlipidemia Mother Arthritis Mother Hyperlipidemia Father Heart disease Father Social History Socioeconomic History Marital status: Spouse name: Not on file Number of children: Not on file Years of education: Not on file Highest education level: Not on file Occupational History Not on file Social Needs Financial resource strain: Not hard at all Food insecurity Worry: Never true Inability: Never true Transportation needs Medical: No Non-medical: No Tobacco Use Smoking status: Never Smoker Smokeless tobacco: Never Used Substance and Sexual Activity Alcohol use: No Drug use: Not on file Sexual activity: Not on file Lifestyle Physical activity Days per week: Not on file Minutes per session: Not on file Stress: Not on file Relationships Social connections Talks on phone: Not on file Gets together: Once a week Attends scientologist service: Not on file Active member of club or organization: Not on file Attends meetings of clubs or organizations: Not on file Relationship status: Not on file Other Topics Concern Not on file Social History Narrative Not on file Past Surgical History: Procedure Laterality Date TONSILLECTOMY Allergies Allergen Reactions Ciprofloxacin Hives Penicillin Penicillin G Hives Penicillins Sulfa (Sulfonamide Antibiotics) Hives Sulfamethoxazole-Trimethoprim OARRS/NARxCHECK Report Received and Assessed: No data found Date controlled substance agreement signed: No data found Date of last drug screen: No data found Functional Assessment: No data found If any referrals were placed at today's visit the patient was instructed to call the office if theyhavn't heard anything about the referral within 2 weeks of today's visit. For any new medications prescribed today, patient was educated about indications for the medication, how to take the medication and potential side effects of the medications. documented in this encounter Reason for Referral Specialty Diagnoses / Procedures Referred By Priya rivero Referred To Contact Radiology Diagnoses Nodular radiologic density Lung nodules Procedures CT Chest Without Contrast Arlyn Gutierrez CNP [address] [place] [id number] Referral ID Status Reason Start Date Expiration Date V isits Requested Visits Authorized [id number] New Request 11/09/2021 11/09/2022 1 1 Additional Source Comments INFORMATION SOURCE (unrecogn ized section and content) DATE CREATED AUTHOR AUTHOR'S ORGANIZ ATION 01/18/2018 [facility] DATE CREATED AUTHOR AUTHOR'S ORGANIZ ATION 03/29/2018 [facility] DATE CREATED AUTHOR AUTHOR'S ORGANIZ ATION 04/15/2020 [facility] DATE CREATED AUTHOR AUTHOR'S ORGANIZ ATION 10/04/2020 [facility] DATE CREATED AUTHOR AUTHOR'S ORGANIZ ATION 06/13/2021 [facility] DATE CREATED AUTHOR AUTHOR'S ORGANIZ ATION 10/29/2021 [facility] DATE CREATED AUTHOR AUTHOR'S ORGANIZ ATION 12/04/2022 [facility] DATE CREATED AUTHOR AUTHOR'S ORGANIZ ATION 07/31/2023 [facility] DATE CREATED AUTHOR AUTHOR'S ORGANIZ ATION 08/14/2023 [facility] Reason for Visit (unrecogniz ed section and content) Reason Comments Hypertension Anxiety patient states this started after stopping control Insomnia [id number] Reason Onset Date Comments Medication Refill 06/06/2021 Reason Comments Hypertension Anxiety Shortness of Breath Pt has covid 1 month ago needs repeat CT Assessment & Plan Note - Arlyn Gutierrez CNP - 11/14/2018 10:15 AM EDTAssessment & Plan Note - Arlyn Gutierrez CNP - 05/25/2020 4:16 PM EST Miscellaneous Notes (unrecog nized section and content) Associated Problem(s): Hypertension Continue meds, limit salt intake, increase activity, watch diet, continue monitoring BP at home with goal of 130/80 or less documented in this encounter Associated Problem(s): Anxiety and depression Start sertraline 50 mg 1/2 tab for first 7-10 days then increase to a whole tab daily. If have any intolerable side effects notify office. Associated Problem(s): Hypertension Increase labetalol to 400 mg twice a day. Continue to monitor blood pressure and heart rate. If heart rate goes below 60 notify office. If blood pressure < 100/60 notify office documented in this encounter <item><item> Privacy Markings (unrecogniz ed section and content) Section Author: Tarsha Noland PROHIBITION ON REDISCLOSURE OF CONFIDENTIAL INFORMATION This notice accompanies a disclosure of information concerning a client made to you with the consent of such client. Section Author: Tarsha Noland PROHIBITION ON REDISCLOSURE OF CONFIDENTIAL INFORMATION This notice accompanies a disclosure of information concerning a client made to you with the consent of such client. Care Teams (unrecognized sec tion and content) Rn Faculty Relationship Specialty Start Date End Date Arlyn Gutierrez CNP PCP - General Nurse Practitioner 11/06/17 Rn Faculty Relationship Specialty Start Date End Date Arlyn Gutierrez CNP PCP - General Nurse Practitioner 11/06/17 Rn Faculty Relationship Specialty Start Date End Date Arlyn Gutierrez CNP PCP - General Nurse Practitioner 11/06/17 FOR RECORDS PERTAINING TO PATIENTS WHO ARE OR HAVE BEEN ENROLLED IN A CHEMICAL DEPENDENCY/SUBSTANCEABUSE PROGRAM, SOME INFORMATION MAY BE OMITTED. This clinical summary was aggregated from multiple sources. Caution should be exercised in using it in the provision of clinical care. This summary normalizes information from multiple sources, and as a consequence, information in this document may materially change the coding, format and clinical context of patient data. In addition, data may be omitted in some cases. CLINICAL DECISIONS SHOULD BE BASED ON THE PRIMARY CLINICAL RECORDS. [facility] [employer] [facility]. provides no warranty or guarantee of the accuracy or completeness of information in this document.
[2023-08-16 12:42] LABS: Absolute Lymphocyte Count 1.42 X10^3/uL (0.83-4.51); Absolute Neutrophil Count 4.6 X10^3/uL (2.0-7.7); Basophil# 0.05 X10^3/uL; Basophil% 0.7 % (0-1); Eosinophil# 0.14 X10^3/uL; Eosinophils% 2.1 % (0-5); Hematocrit 34.1 % (37-47); Hemoglobin 10.5 g/dL (12.0-15.0); Lymphocyte # 1.42 X10^3/ul (0.83-4.51); Mean Corp Hgb Conc 30.8 g/dL (32-36); Mean Corpuscular Hgb 24.1 pg (27.0-32.0); Mean Corpuscular Volume 78.2 fL (81-99); Mean Platelet Vol. 10.7 fl (6.2-12.0); Monocyte# 0.49 X10^3/uL; Monocyte% 7.2 % (0-10); NRBC Flagged by Analyzer 0 % (0-5); Neutrophil # 4.64 X10^3/uL (2.7-7.7); Neutrophil % 68.7 % (47-70); Platelet Count 298 K/mm3 (150-450); RBC Distribution Width CV 14.7 % (11.6-14.6); RBC Distribution Width SD 41.8 fl (35.1-43.9); Red Blood Count 4.36 M/mm3 (4.2-5.4); White Blood Count 6.8 K/mm3 (4.4-11.0)
[2023-08-16 13:25] LABS: D-Dimer Quantitative (DVT/PE) 0.64 FEU/ug/m (0.27-0.49)
[2023-08-16 13:35] LABS: Anion Gap 5 (5-15); BUN 18 mg/dL (7-18); BUN/Creat Ratio 21.1 RATIO (10-20); Calcium,Total 9.8 mg/dL (8.5-10.1); Chloride 105 mmol/L (98-107); Creatinine, Serum 0.85 mg/dL (0.55-1.02); EST Glomerular Filtration Rate 76 mL/min (>60); Est Glom Filt Rate - Afr Amer 93 mL/min (>60); Glucose 111 mg/dL (74-106); Potassium 4.1 mmol/L (3.5-5.1); Sodium Level 134 mmol/L (136-145)
[2023-08-16 13:46] LABS: Hemoglobin A1c 5.8 % (3.8-5.6)
== END | disposition home or self-care (01) ==
PROVIDERS: PCP Internal Medicine; Referring Provider Nurse Practitioner; Visit Provider Nurse Practitioner
DX: R06.09 Other forms of dyspnea (principal); R07.9 Chest pain, unspecified; E66.9 Obesity, unspecified
CPT/HCPCS: 36415; 80048; 83036; 85025; 85379

== ENCOUNTER → 2023-08-16 | Outpatient (CLI) | payer BC, SELFPAY ==
--- OUTSIDE RECORDS SUMMARY | 2023-08-16 17:12 | XMS RPT_ITS | CCD ---
Author Name Unknown Address [address] [place] [address] Organization [facility] Care Team Providers Care Performance Test Architect Name Role Phone Arlyn Gutierrez Unavailable [phone] Gutierrez Arlyn D Unavailable Unavailable Gutierrez Arlyn [...] Unavail able Arlyn Gutierrez Primary Care Provider [phone] BRISEYDA WALKER Admitting Unavailable BRISEYDA WALKER Attending Unavailable JUAN A PAZ Referring Unav ailable GutierrezArlyn sanchez Primary Care Provider ARLYN GUTIERREZ Admitting Unavailable GUTIERREZARLYN SANCHEZ Primary Care Unavailable GUTIERREZARLYN SANCHEZ Admitting Unavailable GUTIERREZ, ARLYNMichell AVENDANO Primary Care Unavailable Free, Text Entry Unavailable Unavailable Jazzmine Erazo Unavailable Unavailabl e Gutierrez Arlyn RIVERA Primary [...] to adverse reactions to drug 05-22-[address] [facility] (19 sources) penicillin; Translations: [penicillin] Propensity to adverse reactions to drug 08-13-19 24 AOF [facility] (17 sources) penicillin g; Translations: [PENICILLIN G] Propensity to adverse reactions to drug 06-07-[address] [facility] (13 sources) Penicillins; Translations: [PENICILLINS] Propensity to adverse reactions to drug [facility] (17 sources) sulfamethoxazole / trimethoprim; Translations: [SULFAMETHOXAZOLE-T RIMETHOPRIM] Propensity to adverse reactions to drug [facility] (14 sources) Sulfonamides (Antibiotic); Translations: [SULFA (SULFONAMIDE ANTIBIOTICS)] Propensity to adverse reactions to drug 06-07-[address] [facility] (3 sources) Sulfonamides (Antibiotic); Translations: [sulfa drugs] Propensity to adverse reactions to drug (disorder) AOF, Hives/Urticari a [facility] (2 sources) Penicillin Drug Allergy Hives/Urticari a [facility] (4 sources) Penicillins Propensity to adverse reactions to drug [facility] (4 sources) Sulfonamides (Antibiotic) Propensity to adverse reactions to drug 06-07-[address] [facility] (1 source) ALLERGIES NOT ON FILE; Translations: [ALLERGIES NOT ON FILE] Propensity to adverse reactions (disorder) [facility] 2 Repository Medications Current Medications Medication Drug [...] Drug Class(es) Dates Sig (Normalized) Sig (Original) [id number] 200 actuat albuterol 0.09 mg/actuat metered dose [...] Body height 168 cm Text Entry Free [facility] 10-25-2021 [id number] Body temperature 97.88 [degF] Text Entry Free [facility] 10-25-2021 13:26-0400 Diastolic blood pressure 78 mm[Hg] Text Entry Free [facility] 10-25-2021 13:26-0400 Heart rate 74 /min Text Entry Free [facility] 10-25-2021 13:26-0400 SaO2% (BldA) [Mass fraction] 96 % Text Entry Free [facility] 10-25-2021 13:26-0400 Systolic blood pressure 129 mm[Hg] Text Entry Free [facility] 06-13-2021 10:48-0500 Body height 167.6 cm Arlyn Gutierrez STAFF PHARMACIST Work Phone: [facility] 06-13-2021 10:48-0500 Body mass index (BMI) [Ratio] 44.55 kg/m2 Arlyn Gutierrez STAFF PHARMACIST Work Phone: [facility] 06-13-2021 10:48-0500 Body temperature 97.39 [degF] Arlyn Gutierrez STAFF PHARMACIST Work Phone: [facility] 06-13-2021 10:48-0500 Body weight 125.19 kg Arlyn Yinon STAFF PHARMACIST Work Phone: [facility] 06-13-2021 10:48-0500 Diastolic blood pressure 77 mm[Hg] Arlyn Gutierrez STAFF PHARMACIST Work Phone: [facility] 06-13-2021 10:48-0500 Heart rate 79 /min Arlyn Gutierrez STAFF PHARMACIST Work Phone: [facility] 06-13-2021 10:48-0500 Respiratory rate 16 /min Arlyn Gutierrez STAFF PHARMACIST Work Phone: [facility] 06-13-2021 10:48-0500 SaO2% (BldA) [Mass fraction] 98 % Arlyn Gutierrez STAFF PHARMACIST Work Phone: [facility] 06-13-2021 10:48-0500 Systolic blood pressure 122 mm[Hg] Arlyn Gutierrez STAFF PHARMACIST Work Phone: [facility] 05-05-2021 23:30-0400 Diastolic blood pressure 83 mm[Hg] Text Entry Free [facility] 05-05-2021 23:30-0400 Heart rate 63 /min Text Entry Free [facility] 05-05-2021 23:30-0400 Respiratory rate 16 /min Text Entry Free [facility] 05-05-2021 23:30-0400 SaO2% (BldA) [Mass fraction] 98 % Text Entry Free [facility] 05-05-2021 23:30-0400 Systolic blood pressure 151 mm[Hg] Text Entry Free [facility] 05-05-2021 17:39-0400 Body height 167.6 cm Text Entry Free [facility] 05-05-2021 17:39-0400 Body temperature 98.06 [degF] Text Entry Free [facility] 05-05-2021 17:39-0400 Body weight 113.6 kg Text Entry Free [facility] 05-25-2020 15:46-0500 BP Diastolic 91 mm[Hg] Arlyn Gutierrez [facility] 05-25-2020 15:46-0500 BP Systolic 159 mm[Hg] Arlyn Gutierrez [facility] 05-25-2020 15:40-0500 BMI (Body Mass Index) 42.61 kg/m2 Arlyn Gutierrez [facility] 05-25-2020 15:40-0500 Body Temperature 98.1 [degF] Arlyn Gutierrez [facility] 05-25-2020 15:40-0500 Body weight 119.75 kg Arlyn Gutierrez [facility] 05-25-2020 15:40-0500 Height 167.6 cm Arlyn Gutierrez [facility] 05-25-2020 15:40-0500 Pulse (Heart Rate) 79 /min Arlyn Gutierrez [facility] 05-25-2020 15:40-0500 Pulse Oximetry 98 % Arlyn Gutierrez [facility] 05-25-2020 15:40-0500 Respiratory Rate 16 /min Arlyn Gutierrez [facility] 11-14-2018 10:08-0400 BMI (Body Mass Index) 39.22 kg/m2 [facility] 11-14-2018 10:08-0400 Body Temperature 97.9 [degF] [facility] 11-14-2018 10:08-0400 BP Diastolic 81 mm[Hg] [facility] 11-14-2018 10:08-0400 BP Systolic 127 mm[Hg] [facility] 11-14-2018 10:08-0400 Height 167.6 cm [facility] 11-14-2018 10:08-0400 Pulse (Heart Rate) 78 /min [facility] 11-14-2018 10:08-0400 Pulse Oximetry 96 % [facility] 11-14-2018 10:08-0400 Respiratory Rate 14 /min [facility] 11-14-2018 10:08-0400 Weight 110.22 kg [facility] 12-04-2017 11:37-0400 BMI (Body Mass Index) 41.64 kg/m2 [facility] 12-04-2017 11:37-0400 BP Diastolic 88 mm[Hg] [facility] 12-04-2017 11:37-0400 BP Systolic 149 mm[Hg] [facility] 12-04-2017 11:37-0400 Height 167.6 cm [facility] 12-04-2017 11:37-0400 Pulse (Heart Rate) 87 /min [facility] 12-04-2017 11:37-0400 Weight 117.03 kg [facility] 11-27-2017 14:20-0400 BMI (Body Mass Index) 41.74 kg/m2 [facility] 11-27-2017 14:20-0400 BP Diastolic 96 mm[Hg] [facility] 11-27-2017 14:20-0400 BP Systolic 154 mm[Hg] [facility] 11-27-2017 14:20-0400 Height 167.6 cm [facility] 11-27-2017 14:20-0400 Pulse (Heart Rate) 89 /min [facility] 11-27-2017 14:20-0400 Pulse Oximetry 97 % [facility] 11-27-2017 14:20-0400 Weight 117.3 kg Edin Noriega [facility] 11-15-2017 14:41-0400 BP Diastolic 90 mm[Hg] Arlyn Gutierrez [facility] 11-15-2017 14:41-0400 BP Systolic 140 mm[Hg] Arlyn Gutierrez [facility] 11-15-2017 14:41-0400 Pulse (Heart Rate) 96 /min Arlyn Gutierrez [facility] 11-15-2017 14:41-0400 Weight 117.48 kg Arlyn Gutierrez [facility] Encounters Encounter Date Encounter Type Care Provider Facility Start: 08-13-2023 End: 08-13-2023 ambulatory [facility] Start: 07-27-2023 End: 07-28-2023 ambulatory [facility] Start: 12-03-2022 End: 12-03-2022 Emergency department patient visit [facility] Start: 11-09-2021 Orders Only Arlyn Avendano Cynthia erson STAFF PHARMACIST Work Phone: [facility] Primary Care Procedures Date Procedure [...] COVID-19 Vaccine (1) COVID-19 Vaccin e (1) [facility] Payers Date Payer Category Payer Unknown [id number] 2021 Unknown 2021 Unknown [id number] 2017 Private Health Insurance 2017 Unknown [id number] 1975 Unknown [id number] 1975 Unknown [id number] 1975 Unknown [id number] [id number] 1977 Unknown [id number] 1977 Unknown [id number] Social History Date Type Detail Facility Start: 11-15-2017 End: 12-04-2017 Tobacco smoking status CAIS Never smoker [facility] Start: 1975 Sex Assigned At Not on file [facility] Start: 11-15-2017 End: 05-25-2020 Tobacco use and exposure Never used [facility] Start: 05-25-2020 End: 06-13-2021 Alcohol intake Current non-drinker of alcohol (finding) [facility] Start: 12-17-2019 End: 05-25-2020 History SDOH Social Connections Get Together 2 [facility] Start: 05-25-2020 History SDOH [facility] Start: 12-17-2019 End: 05-25-2020 History SDOH Food Worry 1 [facility] Exposure to SARS-CoV -2 (event) Not sure [facility] Tobacco smoking consumption unknown [facility] Exposure to SARS-CoV -2 (event) Yes [facility] Note 06-13-2021 Assessment & Plan Note - [...] nodules Lung nodules seen on CT at [facility] when diagnosed with Covid. Most likely from Covid but to have repeat scan to make sure. Will obtain ER records and proceed from there. Associated Problem(s): COVID-19 covid infection in April 2021 and presented to [facility]. She still endorses fatigue and shortness of breath with moderate activity but getting better. documented in this encounter [facility] Instructions 06-13-2021 Patient Instructions Note Date & [...] nodules Lung nodules seen on CT at [facility] when diagnosed with Covid. Most likely from Covid but to have repeat scan to make sure. Will obtain ER records and proceed from there. COVID-19 covid infection in April 2021 and presented to [facility]. She still endorses fatigue and shortness [...] Log into your personal health record on [email or web address] and enter P072 in the Education box to learn more about Well Visit, Ages 18 to 50: Care Instructions. Current as of: September 02, 2020 Content Version: 13.0 [employer]. Care instructions adapted under license by your healthcare professional. If you have questions about a medical condition or this instruction, always ask your healthcare professional. [employer] disclaims any warranty or liability for your use of this information. documented in this encounter [facility] History of Present illness Narrative 06-13-2021 Arlyn Gutierrez CNP - 06/13/2021 11:00 AM EST Note Date & Type Note Facility 06-13-2021 History of Presen t illness Narrative OFFICE VISIT PROGRESS NOTE HPI Wellness Exam HTN- well controlled in office today, no changes required Anxiety/depression-sertraline working well controlling her symptoms. Covid + @ 1 month ago went to [facility] and was told she had multiple [...] nodules Lung nodules seen on CT at [facility] when diagnosed with Covid. Most likely from Covid but to have repeat scan to make sure. Will obtain ER records and proceed from there. COVID-19 covid infection in April 2021 and presented to [facility]. She still endorses fatigue and shortness [...] of the medications. documented in this encounter [facility] Note 06-06-2021 Telephone Encounter - Zoe Valadez MA - 06/06/2021 8:15 AM ESTTelephone Encounter - Zoe Valadez MA - 06/06/2021 8:14 AM EST [...] medication refill for sertraline (ZOLOFT) 50 MG [id number]/ Sig - Route: Take 1 (one) tablet (50 mg total) by mouth daily . - Oral Sent to pharmacy as: sertraline 50 mg tablet (ZOLOFT) E-Prescribing Status: Receipt confirmed by pharmacy (05/19/2021 4:15 PM EDT) . labetaloL (NORMODYNE) 200 MG [id number] Sig - Route: Take 2 (two) tablets [...] preferred pharmacy listed below? Yes Preferred pharmacies: [facility] [address] [place], [place] [id number] Pt Call Back Number Patient call back message [facility] Eleanor Ortiz documented in this encounter [facility] Note 05-19-2021 Telephone Encounter - Monica Hewitt [...] preferred pharmacy listed below? Yes Preferred pharmacies: [facility] [address] [place], [place] [id number] Pt Call Back Number Work Phone Not on file. Note: pt requested refill on 05-16-21. Still has not been refilled. Pt. Has no medication on hand. Patient call back message [facility] to the [facility] Tarsha Witt documented in this encounter [facility] Evaluation note Note Date & Type Note Facility documented in this encounter [facility] Evaluation note Note Date & Type Note Facility documented in this encounter [facility] Evaluation note Note Date & Type Note Facility documented in this encounter [facility] Evaluation note Note Date & Type Note [...] Log into your personal health record on [email or web address] and enter X567 in the Education box to learn more about High Blood Pressure: Care Instructions. Current as of: June 27, 2017 Content Version: 05.28 [employer]. Care instructions adapted under license by your healthcare professional. If you have questions about a medical condition or this instruction, always ask your healthcare professional. [employer] disclaims any warranty or liability for your [...] irregular heartbeat. After you call 911, the seal mixing operator may tell you to chew 1 [...] Log into your personal health record on [email or web address] and enter A120 in the Education box to learn more about Chest Pain: Care Instructions. Current as of: June 11, 2017 Content Version: .[id number] [employer]. Care instructions adapted under license by your healthcare professional. If you have questions about a medical condition or this instruction, always ask your healthcare professional. [employer] disclaims any warranty or liability for your [...] FoundDocuments on File Type Date Recorded Patient Air Sealing Technician Expl anation Advance Directives and Living Will Documents on File Type Date Recorded Patient Air Sealing Technician Expl anation Advance Directives and Living Will History of Present Illness * Arlyn Gutierrez CNP - 11/14/2018 10:14 AM EDT OFFICE VISIT PROGRESS NOTE HPI HTN- chronic stable and well controlled on labetolol 200 mg daily. Preventative female wellness with Referral Rn- did have [facility] Problem List Items Addressed [...] file Gets together: Once a week Attends taoism service: Not on file Active member of [...] [facility] [place] documented in this encounter* Arlyn Gutierrez CNP [...] file Gets together: Once a week Attends taoism service: Not on file Active member of [...] Contrast Arlyn Gutierrez CNP [address] [place] [id number] Referral ID Status Reason Start Date Expiration Date V isits Requested Visits Authorized [id number] New Request 11/09/2021 11/09/2022 1 1 Additional Source Comments INFORMATION SOURCE (unrecogn ized section and content) DATE CREATED AUTHOR AUTHOR'S ORGANIZ ATION 01/18/2018 [facility] DATE CREATED AUTHOR AUTHOR'S ORGANIZ ATION 03/29/2018 [facility] DATE CREATED AUTHOR AUTHOR'S ORGANIZ ATION 04/15/2020 [facility] DATE CREATED AUTHOR AUTHOR'S ORGANIZ ATION 10/04/2020 [facility] DATE CREATED AUTHOR AUTHOR'S ORGANIZ ATION 06/13/2021 [facility] DATE CREATED AUTHOR AUTHOR'S ORGANIZ ATION 10/29/2021 [facility] DATE CREATED AUTHOR AUTHOR'S ORGANIZ ATION 12/04/2022 [facility] DATE CREATED AUTHOR AUTHOR'S ORGANIZ ATION 07/31/2023 [facility] DATE CREATED AUTHOR AUTHOR'S ORGANIZ ATION 08/14/2023 [facility] Reason for Visit (unrecogniz ed section [...] Care Teams (unrecognized sec tion and content) Performance Test Architect Relationship Specialty Start Date End Date Arlyn Gutierrez CNP PCP - General Nurse Practitioner 11/06/17 Performance Test Architect Relationship Specialty Start Date End Date Arlyn Gutierrez CNP PCP - General Nurse Practitioner 11/06/17 Performance Test Architect Relationship Specialty Start Date End Date Arlyn [...] BE BASED ON THE PRIMARY CLINICAL RECORDS. [facility] [employer] [facility]. provides no warranty or guarantee of the accuracy or completeness of information in this document.
--- NOTE | 2023-08-16 17:19 | CT_ITS ---
STUDY: CTA CHEST REASON FOR EXAM: Female, 47 years old. right chest pain, dyspnea, rule out PE RADIATION DOSAGE (If Supplied By Facility): CTDIvol = ( 11.47 ) mGy, DLP = ( 538.27 ) mGycm TECHNIQUE: The examination was performed with the intravenous administration of IV 100mL Isovue-370. Post-processing of the angiographic images was performed, with multiplanar reformation and 3D reconstruction. Individualized dose optimization techniques were used for this CT. COMPARISON: None. FINDINGS: Normal enhancement of the main pulmonary artery and right and left pulmonary arteries. There is limited enhancement of the bilateral peripheral pulmonary arteries. There is no definite pulmonary embolism. Normal thoracic aorta and visualized great vessels. 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 There is no demonstrated aortic dissection. Normal heart and pericardium. Normal mediastinum. Normal hilar regions. Normal visualized trachea and bronchi. The lungs are under expanded. No infiltrates or effusions are seen. Normal osseous structures. There is a solitary gallstone. CT/CTA Chest W/WO Contrast IMPRESSION: Suboptimal enhancement of the pulmonary arteries. No definite pulmonary emboli seen. Incomplete expansion of the lungs but no gross acute chest disease. Electronically Signed: Mike Ruffin MD at 18:24 EST ,
== END | disposition home or self-care (01) ==
PROVIDERS: PCP Internal Medicine; Referring Provider Nurse Practitioner; Visit Provider Nurse Practitioner
DX: R07.9 Chest pain, unspecified (principal); R06.02 Shortness of breath
CPT/HCPCS: 71275; Q9967

== ENCOUNTER → 2023-08-17 | Outpatient (CLI) | payer BC, SELFPAY ==
--- OUTSIDE RECORDS SUMMARY | 2023-08-17 16:55 | XMS RPT_ITS | CCD ---
Author Name Unknown Address [address] [place] [address] Organization [facility] Care Team Providers Care Events Assistant Name Role Phone Arlyn Gutierrez Unavailable [phone] Gutierrez Arlyn D Unavailable Unavailable Gutierrez Arlyn [...] to adverse reactions to drug 05-22-20 12 [facility] (19 sources) penicillin; Translations: [penicillin] Propensity to adverse reactions to drug 08-13-19 24 AOF [facility] (17 sources) penicillin g; Translations: [PENICILLIN G] Propensity to adverse reactions to drug 06-07-20 11 [facility] (13 sources) Penicillins; Translations: [PENICILLINS] Propensity to adverse reactions to drug [facility] (17 sources) sulfamethoxazole / trimethoprim; Translations: [SULFAMETHOXAZOLE-T RIMETHOPRIM] Propensity to adverse reactions to drug [facility] (14 sources) Sulfonamides (Antibiotic); Translations: [SULFA (SULFONAMIDE ANTIBIOTICS)] Propensity to adverse reactions to drug 06-07-20 11 [facility] (3 sources) Sulfonamides (Antibiotic); Translations: [sulfa drugs] Propensity to adverse reactions to drug (disorder) AOF, Hives/Urticari a [facility] (2 sources) Penicillin Drug Allergy Hives/Urticari a [facility] (4 sources) Penicillins Propensity to adverse reactions to drug [facility] (4 sources) Sulfonamides (Antibiotic) Propensity to adverse reactions to drug 06-07-20 11 [facility] (1 source) ALLERGIES NOT ON FILE; Translations: [ALLERGIES NOT ON FILE] Propensity to adverse reactions (disorder) [facility] 2 Repository Medications Current Medications Medication Drug [...] Drug Class(es) Dates Sig (Normalized) Sig (Original) [id number] 200 actuat albuterol 0.09 mg/actuat metered dose [...] Body height [address] [facility] 10-25-2021 [id number] Body temperature 97.88 [degF] Text Entry [facility] 10-25-2021 13:26-0400 Diastolic blood pressure 78 mm[Hg] Text Entry [facility] 10-25-2021 13:26-0400 Heart rate 74 /min Text Entry [facility] 10-25-2021 13:26-0400 SaO2% (BldA) [Mass fraction] 96 % Text Entry [facility] 10-25-2021 13:26-0400 Systolic blood pressure 129 mm[Hg] Text Entry [facility] 06-13-2021 10:48-0500 Body height 167.6 cm Arlyn Gutierrez PEDIATRIC PHYSIATRIST Work Phone: [facility] 06-13-2021 10:48-0500 Body mass index (BMI) [Ratio] 44.55 kg/m2 Arlyn Gutierrez PEDIATRIC PHYSIATRIST Work Phone: [facility] 06-13-2021 10:48-0500 Body temperature 97.39 [degF] Arlyn Gutierrez PEDIATRIC PHYSIATRIST Work Phone: [facility] 06-13-2021 10:48-0500 Body weight 125.19 kg Arlyn Yinon PEDIATRIC PHYSIATRIST Work Phone: [facility] 06-13-2021 10:48-0500 Diastolic blood pressure 77 mm[Hg] Arlyn Gutierrez PEDIATRIC PHYSIATRIST Work Phone: [facility] 06-13-2021 10:48-0500 Heart rate 79 /min Arlyn Gutierrez PEDIATRIC PHYSIATRIST Work Phone: [facility] 06-13-2021 10:48-0500 Respiratory rate 16 /min Arlyn Gutierrez PEDIATRIC PHYSIATRIST Work Phone: [facility] 06-13-2021 10:48-0500 SaO2% (BldA) [Mass fraction] 98 % Arlyn Gutierrez PEDIATRIC PHYSIATRIST Work Phone: [facility] 06-13-2021 10:48-0500 Systolic blood pressure 122 mm[Hg] Arlyn Gutierrez PEDIATRIC PHYSIATRIST Work Phone: [facility] 05-05-2021 23:30-0400 Diastolic blood pressure 83 mm[Hg] Text Entry [facility] 05-05-2021 23:30-0400 Heart rate 63 /min Text Entry [facility] 05-05-2021 23:30-0400 Respiratory rate 16 /min Text Entry [facility] 05-05-2021 23:30-0400 SaO2% (BldA) [Mass fraction] 98 % Text Entry [facility] 05-05-2021 23:30-0400 Systolic blood pressure 151 mm[Hg] Text Entry [facility] 05-05-2021 17:39-0400 Body height 167.[address] [facility] 05-05-2021 17:39-0400 Body temperature 98.06 [degF] Text Entry [facility] 05-05-2021 17:39-0400 Body weight 113.[address] [facility] 05-25-2020 15:46-0500 BP Diastolic 91 mm[Hg] Arlyn Gutierrez [facility] 05-25-2020 15:46-0500 BP Systolic 159 mm[Hg] Arlyn Gutierrez [facility] 05-25-2020 15:40-0500 BMI (Body Mass Index) 42.61 kg/m2 Arlyn Gutierrez [facility] 05-25-2020 15:40-0500 Body Temperature 98.1 [degF] Arlyn Gutierrez [facility] 05-25-2020 15:40-0500 Body weight 119.75 kg Arlyn Gutierrez [facility] 05-25-2020 15:40-0500 Height 167.6 cm Arlyn Gutierrez [facility] 05-25-2020 15:40-0500 Pulse (Heart Rate) 79 /min Arlyn Gutierrez [facility] 05-25-2020 15:40-0500 Pulse Oximetry 98 % Arlyn Gutierrez [facility] 05-25-2020 15:40-0500 Respiratory Rate 16 /min Arlyn Gutierrez [facility] 11-14-2018 10:08-0400 BMI (Body Mass Index) 39.22 kg/m2 [facility] 11-14-2018 10:08-0400 Body Temperature 97.9 [degF] [facility] 11-14-2018 10:08-0400 BP Diastolic 81 mm[Hg] [facility] 11-14-2018 10:08-0400 BP Systolic 127 mm[Hg] [facility] 11-14-2018 10:08-0400 Height 167.6 cm [facility] 11-14-2018 10:08-0400 Pulse (Heart Rate) 78 /min [facility] 11-14-2018 10:08-0400 Pulse Oximetry 96 % [facility] 11-14-2018 10:08-0400 Respiratory Rate 14 /min [facility] 11-14-2018 10:08-0400 Weight 110.22 kg [facility] 12-04-2017 11:37-0400 BMI (Body Mass Index) 41.64 kg/m2 [facility] 12-04-2017 11:37-0400 BP Diastolic 88 mm[Hg] [facility] 12-04-2017 11:37-0400 BP Systolic 149 mm[Hg] [facility] 12-04-2017 11:37-0400 Height 167.6 cm [facility] 12-04-2017 11:37-0400 Pulse (Heart Rate) 87 /min [facility] 12-04-2017 11:37-0400 Weight 117.03 kg [facility] 11-27-2017 14:20-0400 BMI (Body Mass Index) 41.74 kg/m2 [facility] 11-27-2017 14:20-0400 BP Diastolic 96 mm[Hg] [facility] 11-27-2017 14:20-0400 BP Systolic 154 mm[Hg] [facility] 11-27-2017 14:20-0400 Height 167.6 cm [facility] 11-27-2017 14:20-0400 Pulse (Heart Rate) 89 /min [facility] 11-27-2017 14:20-0400 Pulse Oximetry 97 % [facility] 11-27-2017 14:20-0400 Weight 117.3 kg Edin Noriega [facility] 11-15-2017 14:41-0400 BP Diastolic 90 mm[Hg] Arlyn Gutierrez [facility] 11-15-2017 14:41-0400 BP Systolic 140 mm[Hg] Arlyn Gutierrez [facility] 11-15-2017 14:41-0400 Pulse (Heart Rate) 96 /min Arlyn Gutierrez [facility] 11-15-2017 14:41-0400 Weight 117.48 kg Arlyn Gutierrez [facility] Encounters Encounter Date Encounter Type Care Provider Facility Start: 08-13-2023 End: 08-13-2023 ambulatory [facility] Ambulatory Start: 07-27-2023 End: 07-28-2023 ambulatory SCARLETT Cordoba [facility] Start: 12-03-2022 End: 12-03-2022 Emergency department patient visit [facility] Start: 11-09-2021 Orders Only Arlyn Avendano Cynthia erson PEDIATRIC PHYSIATRIST Work Phone: [facility] Primary Care Procedures Date Procedure Procedure Detail Performing Clinician Start: 07-27-2023 XR FOOT RIGHT 3+ VIEWS SCARLETT SUMMERS Start: 05-05-2021 End: 05-05-2021 EKG impression Murtaza Huston Start: 12-07-2017 End: 12-07-2017 Tte w/doppler, complete Edin Noriega Work Phone: Start: 12-04-2017 End: 12-04-2017 Cardiovascular stress test Edin Noreiga Work Phone: Start: 07-23-2016 Microscopic observat ion [Identifier] in Cervix by Cyto stain Arlyn Gutierrez Plan of Treatment Date Care Activity Detail Author Start: 06-13-2022 COVID-19 Vaccine (1) COVID-19 Vaccin e (1) [facility] Payers Date Payer Category Payer Unknown [id number] 2021 Unknown 2021 Unknown [id number] 2017 Private Health Insurance 2017 Unknown [id number] 1975 Unknown [id number] 1975 Unknown [id number] 1977 Unknown [id number] [id number] 1975 Unknown [id number] 1975 Unknown [id number] Social History Date Type Detail Facility Start: 11-15-2017 End: 12-04-2017 Tobacco smoking status RIIS Never smoker [facility] Start: 1975 Sex Assigned At Not on file [facility] Start: 11-15-2017 End: 05-25-2020 Tobacco use and exposure Never used [facility] Start: 05-25-2020 End: 06-13-2021 Alcohol intake Current non-drinker of alcohol (finding) [facility] Start: 12-17-2019 End: 05-25-2020 History SDOH Social Connections Get Together 2 [facility] Start: 05-25-2020 History SDOH [facility] Start: 12-17-2019 End: 05-25-2020 History SDOH Food Worry 1 [facility] Exposure to SARS-CoV -2 (event) Not sure [facility] Tobacco smoking consumption unknown [facility] Exposure to SARS-CoV -2 (event) Yes [facility] Note 06-13-2021 Assessment & Plan Note - Arlyn Gutierrez CNP - 06/13/2021 11:37 AM ESTAssessment & Plan Note - Aryln Gutierrez CNP - 06/13/2021 11:36 AM EST Note Date & Type Note Facility 06-13-2021 Miscellaneous Notes Associated Problem(s): Anxiety and depression Stable sertraline managing symptoms well. Continue current dose of 50 Mg daily Associated Problem(s): Hypertension Stable well controlled in office today Have fasting labs done prior to next visit Associated Problem(s): Pulmonary nodules Lung nodules seen on CT at [facility] when diagnosed with Covid. Most likely from Covid but to have repeat scan to make sure. Will obtain ER records and proceed from there. Associated Problem(s): COVID-19 covid infection in April 2021 and presented to [place] [facility]. She still endorses fatigue and shortness of breath with moderate activity but getting better. documented in this encounter [facility] Instructions 06-13-2021 Patient Instructions Note Date & [...] nodules Lung nodules seen on CT at [facility] when diagnosed with Covid. Most likely from Covid but to have repeat scan to make sure. Will obtain ER records and proceed from there. COVID-19 covid infection in April 2021 and presented to [place] [facility]. She still endorses fatigue and shortness [...] Log into your personal health record on [email or web address] and enter P072 in the Education box to learn more about Well Visit, Ages 18 to 50: Care Instructions. Current as of: September 02, 2020 Content Version: 13.0 webme. Care instructions adapted under license by your healthcare professional. If you have questions about a medical condition or this instruction, always ask your healthcare professional. webme disclaims any warranty or liability for your use of this information. documented in this encounter [facility] History of Present illness Narrative 06-13-2021 Arlyn Gutierrez CNP - 06/13/2021 11:00 AM EST Note Date & Type Note Facility 06-13-2021 History of Presen t illness Narrative OFFICE VISIT PROGRESS NOTE HPI Wellness Exam HTN- well controlled in office today, no changes required Anxiety/depression-sertraline working well controlling her symptoms. Covid + @ 1 month ago went to [place] [facility] and was told she had multiple [...] nodules Lung nodules seen on CT at [facility] when diagnosed with Covid. Most likely from Covid but to have repeat scan to make sure. Will obtain ER records and proceed from there. COVID-19 covid infection in April 2021 and presented to [place] [facility]. She still endorses fatigue and shortness [...] of the medications. documented in this encounter [facility] Note 06-06-2021 Telephone Encounter - Zoe Valadez [...] medication refill for sertraline (ZOLOFT) 50 MG / Sig - Route: Take 1 (one) tablet (50 mg total) by mouth daily . - Oral Sent to pharmacy as: sertraline 50 mg tablet (ZOLOFT) E-Prescribing Status: Receipt confirmed by pharmacy (05/19/2021 4:15 PM EDT) . labetaloL (NORMODYNE) 200 MG [id number] Sig - Route: Take 2 (two) tablets [...] preferred pharmacy listed below? Yes Preferred pharmacies: [facility] [address] [place], [place] [id number] Pt Call Back Number Patient call back message sent to the [facility]. Eleanor Ortiz documented in this encounter [facility] [...] preferred pharmacy listed below? Yes Preferred pharmacies: [facility] [address] [place], [place] [id number] Pt Call Back Number Work Phone Not on file. Note: pt requested refill on 05-16-21. Still has not been refilled. Pt. Has no medication on hand. Patient call back message sent to the [facility]. Tarsha Witt documented in this encounter [facility] Evaluation note Note Date & Type Note Facility documented in this encounter [facility] Evaluation note Note Date & Type Note Facility documented in this encounter [facility] Evaluation note Note Date & Type Note Facility documented in this encounter [facility] Evaluation note Note Date & Type Note [...] Log into your personal health record on [email or web address].[email or web address] and enter X567 in the Education box to learn more about High Blood Pressure: Care Instructions. Current as of: June 27, 2017 Content Version: 05.28 webme. Care instructions adapted under license by your healthcare professional. If you have questions about a medical condition or this instruction, always ask your healthcare professional. webme disclaims any warranty or liability for your [...] irregular heartbeat. After you call 911, the footwear production machine operator may tell you to chew 1 [...] Log into your personal health record on [email or web address] and enter A120 in the Education box to learn more about Chest Pain: Care Instructions. Current as of: June 11, 2017 Content Version: .[id number] webme. Care instructions adapted under license by your healthcare professional. If you have questions about a medical condition or this instruction, always ask your healthcare professional. 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 Preventative female wellness with Epic Director- did have MMG Problem List Items [...] file Gets together: Once a week Attends druze service: Not on file Active member of [...] [facility] [place] documented in this encounter* Arlyn Gutierrez CNP [...] file Gets together: Once a week Attends druze service: Not on file Active member of [...] Contrast Arlyn Gutierrez CNP [address] [place] [id number] Referral ID Status Reason Start Date Expiration Date V isits Requested Visits Authorized [id number] New Request 11/09/2021 11/09/2022 1 1 Additional Source Comments INFORMATION SOURCE (unrecogn ized section and content) DATE CREATED AUTHOR AUTHOR'S ORGANIZ ATION 01/18/2018 [facility] DATE CREATED AUTHOR AUTHOR'S ORGANIZ ATION 03/29/2018 [facility] DATE CREATED AUTHOR AUTHOR'S ORGANIZ ATION 04/15/2020 [facility] DATE CREATED AUTHOR AUTHOR'S ORGANIZ ATION 10/04/2020 [facility] DATE CREATED AUTHOR AUTHOR'S ORGANIZ ATION 06/13/2021 [facility] DATE CREATED AUTHOR AUTHOR'S ORGANIZ ATION 10/29/2021 [facility] DATE CREATED AUTHOR AUTHOR'S ORGANIZ ATION 12/04/2022 [facility] DATE CREATED AUTHOR AUTHOR'S ORGANIZ ATION 07/31/2023 [facility] DATE CREATED AUTHOR AUTHOR'S ORGANIZ ATION 08/14/2023 [facility] Ambulatory Reason for Visit (unrecogniz ed [...] consent of such client. Section Author: Tarsha Nolnad PROHIBITION ON REDISCLOSURE OF CONFIDENTIAL INFORMATION This notice accompanies a disclosure of information concerning a client made to you with the consent of such client. Care Teams (unrecognized sec tion and content) Events Assistant Relationship Specialty Start Date End Date Arlyn Gutierrez CNP PCP - General Nurse Practitioner 11/06/17 Events Assistant Relationship Specialty Start Date End Date Arlyn Gutierrez CNP PCP - General Nurse Practitioner 11/06/17 Events Assistant Relationship Specialty Start Date End Date Arlyn [...] BE BASED ON THE PRIMARY CLINICAL RECORDS. [facility]. provides no warranty or guarantee of the accuracy or completeness of information in this document.
[2023-08-17 18:33] LABS: Ferritin 7 ng/mL (8-252); Iron 27 ug/dL (50-170); Iron Binding Capacity,Total 467 ug/dL (250-450)
== END | disposition home or self-care (01) ==
LOC: LAB 16:52
PROVIDERS: PCP Internal Medicine; Referring Provider Nurse Practitioner; Visit Provider Nurse Practitioner
DX: D64.9 Anemia, unspecified (principal)
CPT/HCPCS: 36415; 82728; 83540; 83550

== ENCOUNTER 2023-08-31 08:42 | Outpatient (CLI) | payer BC, SELFPAY ==
--- OUTSIDE RECORDS SUMMARY | 2023-08-31 08:56 | XMS RPT_ITS | CCD ---
Author Name Unknown Address [address] [place] [address] Organization [facility] Care Team Providers Care Brand Ambassador Promotional Model Name Role Phone Arlyn Gutierrez Unavailable [phone] Gutierrez Arlyn D Unavailable Unavailable Gutierrez Arlyn D Unavailable Unavailable Leann, Edin Unavailable Unavailable Leann, Edin Unavailable Unavailable Leann, Edin Unavailable Unavailable Leann, Edin Unavailable Unavailable Deeser, Alisha S Unavailable Unavailable Deeser, Alisha S Unavailable Unavailable No Doctor Assigned, Nodr Unavailable Unavail able Aden Manedep Unavailable Unavailable Bitner, Mandeep Unavailable Unavailable No [...] to adverse reactions to drug 05-22-20 12 [facility] (19 sources) penicillin; Translations: [penicillin] Propensity to adverse reactions to drug 08-13-19 24 [facility] (17 sources) penicillin g; Translations: [PENICILLIN G] Propensity to adverse reactions to drug 06-07-20 11 [facility] (13 sources) Penicillins; Translations: [PENICILLINS] Propensity to adverse reactions to drug [facility] (17 sources) sulfamethoxazole / trimethoprim; Translations: [SULFAMETHOXAZOLE-T RIMETHOPRIM] Propensity to adverse reactions to drug [facility] (14 sources) Sulfonamides (Antibiotic); Translations: [SULFA (SULFONAMIDE ANTIBIOTICS)] Propensity to adverse reactions to drug 06-07-20 11 [facility] (3 sources) Sulfonamides (Antibiotic); Translations: [sulfa drugs] Propensity to adverse reactions to drug (disorder) [facility], Hives/Urticari a [facility] (2 sources) Penicillin Drug Allergy Hives/Urticari a [facility] (4 sources) Penicillins Propensity to adverse reactions to drug [facility] (4 sources) Sulfonamides (Antibiotic) Propensity to adverse reactions to drug 06-07-20 11 [facility] (1 source) ALLERGIES NOT ON FILE; Translations: [ALLERGIES NOT ON FILE] Propensity to adverse reactions (disorder) [facility] 2 Repository Medications Current Medications Medication [...] Drug Class(es) Dates Sig (Normalized) Sig (Original) [id number] 200 actuat albuterol 0.09 mg/actuat metered dose inhaler (1 source) beta2-Adrenergic Agonist Start: 10-25-2021 take 2 puff(s) by inhalation twice daily as needed for cough albuterol 90 mcg/inh inhalation aerosol ; 2 puff(s) inhaled 2 times a day as needed for cough Quantity: 8.5 Refills: 0 Ordered: 25-Oct-2021 Ruébn Garcia Start: 25-Oct-2021 Generic Substitution Allowed Comments: [...] Body height 168 cm Text Entry [facility] 10-25-2021 [id number] Body temperature 97.88 [degF] Text Entry [facility] 10-25-2021 13:26-0400 Diastolic blood pressure 78 mm[Hg] Text Entry [facility] 10-25-2021 13:26-0400 Heart rate 74 /min Text Entry [facility] 10-25-2021 13:26-0400 SaO2% (BldA) [Mass fraction] 96 % [facility] 10-25-2021 13:26-0400 Systolic blood pressure 129 mm[Hg] Text Entry [facility] 06-13-2021 10:48-0500 Body height 167.6 cm Arlyn Gutierrez VOLUNTEER SERVICES COORDINATOR Work Phone: [facility] 06-13-2021 10:48-0500 Body mass index (BMI) [Ratio] 44.55 kg/m2 Arlyn Gutierrez VOLUNTEER SERVICES COORDINATOR Work Phone: [facility] 06-13-2021 10:48-0500 Body temperature 97.39 [degF] Arlyn Gutierrez VOLUNTEER SERVICES COORDINATOR Work Phone: [facility] 06-13-2021 10:48-0500 Body weight 125.19 kg Arlyn Yinon VOLUNTEER SERVICES COORDINATOR Work Phone: [facility] 06-13-2021 10:48-0500 Diastolic blood pressure 77 mm[Hg] Arlyn Gutierrez VOLUNTEER SERVICES COORDINATOR Work Phone: [facility] 06-13-2021 10:48-0500 Heart rate 79 /min Arlyn Gutierrez VOLUNTEER SERVICES COORDINATOR Work Phone: [facility] 06-13-2021 10:48-0500 Respiratory rate 16 /min Arlyn Gutierrez VOLUNTEER SERVICES COORDINATOR Work Phone: [facility] 06-13-2021 10:48-0500 SaO2% (BldA) [Mass fraction] 98 % Arlyn Gutierrez VOLUNTEER SERVICES COORDINATOR Work Phone: [facility] 06-13-2021 10:48-0500 Systolic blood pressure 122 mm[Hg] Arlyn Gutierrez VOLUNTEER SERVICES COORDINATOR Work Phone: [facility] 05-05-2021 23:30-0400 Diastolic blood pressure 83 mm[Hg] Text Entry [facility] 05-05-2021 23:30-0400 Heart rate 63 /min Text Entry [facility] 05-05-2021 23:30-0400 Respiratory rate 16 /min Text Entry [facility] 05-05-2021 23:30-0400 SaO2% (BldA) [Mass fraction] 98 % Text Entry [facility] 05-05-2021 23:30-0400 Systolic blood pressure 151 mm[Hg] Text [facility] 05-05-2021 17:39-0400 Body height 167.6 cm Text Entry [facility] 05-05-2021 17:39-0400 Body temperature 98.06 [degF] Text Entry [facility] 05-05-2021 17:39-0400 Body weight 113.6 kg Text Entry [facility] 05-25-2020 15:46-0500 BP Diastolic 91 mm[Hg] Arlyn Gutierrez [facility] 05-25-2020 15:46-0500 BP Systolic 159 mm[Hg] Arlyn Gutierrez [facility] 05-25-2020 15:40-0500 BMI (Body Mass Index) 42.61 kg/m2 Arlyn Gutierrez [facility] 05-25-2020 15:40-0500 Body Temperature 98.1 [degF] Arlyn Gutierrez [facility] 05-25-2020 15:40-0500 Body weight 119.75 kg Arlyn Gutierrez [facility] 05-25-2020 15:40-0500 Height 167.6 cm Arlyn Gutierrez [facility] 05-25-2020 15:40-0500 Pulse (Heart Rate) 79 /min Arlyn Gutierrez [facility] 05-25-2020 15:40-0500 Pulse Oximetry 98 % Arlyn Gutierrez [facility] 05-25-2020 15:40-0500 Respiratory Rate 16 /min Arlyn Gutierrez [facility] 11-14-2018 10:08-0400 BMI (Body Mass Index) 39.22 kg/m2 [facility] 11-14-2018 10:08-0400 Body Temperature 97.9 [degF] [facility] 11-14-2018 10:08-0400 BP Diastolic 81 mm[Hg] [facility] 11-14-2018 10:08-0400 BP Systolic 127 mm[Hg] [facility] 11-14-2018 10:08-0400 Height 167.6 cm [facility] 11-14-2018 10:08-0400 Pulse (Heart Rate) 78 /min [facility] 11-14-2018 10:08-0400 Pulse Oximetry 96 % [facility] 11-14-2018 10:08-0400 Respiratory Rate 14 /min [facility] 11-14-2018 10:08-0400 Weight 110.22 kg [facility] 12-04-2017 11:37-0400 BMI (Body Mass Index) 41.64 kg/m2 [facility] 12-04-2017 11:37-0400 BP Diastolic 88 mm[Hg] [facility] 12-04-2017 11:37-0400 BP Systolic 149 mm[Hg] [facility] 12-04-2017 11:37-0400 Height 167.6 cm [facility] 12-04-2017 11:37-0400 Pulse (Heart Rate) 87 /min [facility] 12-04-2017 11:37-0400 Weight 117.03 kg [facility] 11-27-2017 14:20-0400 BMI (Body Mass Index) 41.74 kg/m2 [facility] 11-27-2017 14:20-0400 BP Diastolic 96 mm[Hg] [facility] 11-27-2017 14:20-0400 BP Systolic 154 mm[Hg] [facility] 11-27-2017 14:20-0400 Height 167.6 cm [facility] 11-27-2017 14:20-0400 Pulse (Heart Rate) 89 /min [facility] 11-27-2017 14:20-0400 Pulse Oximetry 97 % [facility] 11-27-2017 14:20-0400 Weight 117.3 kg Edin Noriega [facility] 11-15-2017 14:41-0400 BP Diastolic 90 mm[Hg] Arlyn Gutierrez [facility] 11-15-2017 14:41-0400 BP Systolic 140 mm[Hg] Arlyn Gutierrez [facility] 11-15-2017 14:41-0400 Pulse (Heart Rate) 96 /min Arlyn Gutierrez [facility] 11-15-2017 14:41-0400 Weight 117.48 kg Arlyn Gutierrez [facility] Encounters Encounter Date Encounter Type Care Provider Facility Start: 08-13-2023 End: 08-13-2023 ambulatory [facility] Ambulatory Start: 07-27-2023 End: 07-28-2023 ambulatory [facility] Start: 12-03-2022 End: 12-03-2022 Emergency department patient visit [facility] Start: 11-09-2021 Orders Only Arlyn Avendano Cynthia erson VOLUNTEER SERVICES COORDINATOR Work Phone: [facility] Procedures Date [...] COVID-19 Vaccine (1) COVID-19 Vaccin e (1) [facility] Payers Date Payer Category Payer Unknown [id number] 2021 Unknown 2021 Unknown [id number] 2017 Private Health Insurance 2017 Unknown [id number] 1975 Unknown [id number] 1975 Unknown [id number] 1977 Unknown [id number] 1977 Unknown [id number] 1977 Unknown [id number] Social History Date Type Detail Facility Start: 11-15-2017 End: 12-04-2017 Tobacco smoking status [facility] Never smoker [facility] Start: 1975 Sex Assigned At Not on file [facility] Start: 11-15-2017 End: 05-25-2020 Tobacco use and exposure Never used [facility] Start: 05-25-2020 End: 06-13-2021 Alcohol intake Current non-drinker of alcohol (finding) [facility] Start: 12-17-2019 End: 05-25-2020 History SDOH Social Connections Get Together 2 [facility] Start: 05-25-2020 History SDOH Financial 5 [facility] Start: 12-17-2019 End: 05-25-2020 History SDOH Food Worry 1 [facility] Exposure to SARS-CoV -2 (event) Not sure [facility] Tobacco smoking consumption unknown [facility] Exposure to SARS-CoV -2 (event) Yes [facility] Note 06-13-2021 Assessment & Plan Note [...] nodules Lung nodules seen on CT at [facility] when diagnosed with Covid. Most likely from Covid but to have repeat scan to make sure. Will obtain ER records and proceed from there. Associated Problem(s): COVID-19 covid infection in April 2021 and presented to [place]. She still endorses fatigue and shortness of breath with moderate activity but getting better. documented in this encounter [facility] Instructions 06-13-2021 Patient Instructions Note Date [...] nodules Lung nodules seen on CT at [facility] when diagnosed with Covid. Most likely from Covid but to have repeat scan to make sure. Will obtain ER records and proceed from there. COVID-19 covid infection in April 2021 and presented to [facility]. She still endorses fatigue and shortness [...] Log into your personal health record on [email or web address] and enter P072 in the Education box to learn more about Well Visit, Ages 18 to 50: Care Instructions. Current as of: September 02, 2020 Content Version: 13.0 [employer]. Care instructions adapted under license by your healthcare professional. If you have questions about a medical condition or this instruction, always ask your healthcare professional. [employer] disclaims any warranty or liability for your use of this information. documented in this encounter [facility] History of Present illness Narrative 06-13-2021 Arlyn Gutierrez CNP - 06/13/2021 11:00 AM EST Note Date & Type Note Facility 06-13-2021 History of Presen t illness Narrative OFFICE VISIT PROGRESS NOTE HPI Wellness Exam HTN- well controlled in office today, no changes required Anxiety/depression-sertraline working well controlling her symptoms. Covid + @ 1 month ago went to [facility] [facility] and was told she had multiple [...] nodules Lung nodules seen on CT at [facility] when diagnosed with Covid. Most likely from Covid but to have repeat scan to make sure. Will obtain ER records and proceed from there. COVID-19 covid infection in April 2021 and presented to [facility]. She still endorses fatigue and shortness [...] of the medications. documented in this encounter [facility] Note 06-06-2021 Telephone Encounter - Zoe [...] medication refill for sertraline (ZOLOFT) 50 MG [id number]/ Sig - Route: Take 1 (one) tablet (50 mg total) by mouth daily . - Oral Sent to pharmacy as: sertraline 50 mg tablet (ZOLOFT) E-Prescribing Status: Receipt confirmed by pharmacy (05/19/2021 4:15 PM EDT) . labetaloL (NORMODYNE) 200 MG [id number] Sig - Route: Take 2 (two) tablets [...] preferred pharmacy listed below? Yes Preferred pharmacies: [facility] [address] [place], [place] [address] Pt Call Back Number Patient call back message sent to the [facility] [place]. Eleanor Ortiz documented in this encounter [facility] Note 05-19-2021 Telephone Encounter - Monica Hewitt [...] preferred pharmacy listed below? Yes Preferred pharmacies: [facility] [address] [place], [place] [address] Pt Call Back Number Work Phone Not on file. Note: pt requested refill on 05-16-21. Still has not been refilled. Pt. Has no medication on hand. Patient call back message sent to the [facility] [place]. Tarsha Witt documented in this encounter [facility] Evaluation note Note Date & Type Note Facility documented in this encounter [facility] Evaluation note Note Date & Type Note Facility documented in this encounter [facility] Evaluation note Note Date & Type Note Facility documented in this encounter [facility] Evaluation note Note Date & Type [...] Log into your personal health record on [email or web address] and enter X567 in the Education box to learn more about High Blood Pressure: Care Instructions. Current as of: June 27, 2017 Content Version: 05.28 [employer]. Care instructions adapted under license by your healthcare professional. If you have questions about a medical condition or this instruction, always ask your healthcare professional. [employer] disclaims any warranty or liability for your [...] irregular heartbeat. After you call 911, the radio intelligence operator may tell you to chew 1 [...] Log into your personal health record on [email or web address] and enter A120 in the Education box to learn more about Chest Pain: Care Instructions. Current as of: June 11, 2017 Content Version: .[id number] [employer]. Care instructions adapted under license by your healthcare professional. If you have questions about a medical condition or this instruction, always ask your healthcare professional. [employer] disclaims any warranty or liability for your use of this information. in this encounter* Patient Instructions* Alryn Gutierrez CNP - 11/14/2018 10:21 AM EDT [...] FoundDocuments on File Type Date Recorded Patient Legal Summer Intern Expl anation Advance Directives and Living Will Documents on File Type Date Recorded Patient Legal Summer Intern Expl anation Advance Directives and Living Will History of Present Illness * Arlyn Gutierrez CNP - 11/14/2018 10:14 AM EDT OFFICE VISIT PROGRESS NOTE HPI HTN- chronic stable and well controlled on labetolol 200 mg daily. Preventative female wellness with [employer]- did have [facility] Problem List Items Addressed [...] file Gets together: Once a week Attends gnosticist service: Not on file Active member of [...] [facility] [place] documented in this encounter* Arlyn Gutierrez CNP [...] file Gets together: Once a week Attends gnosticist service: Not on file Active member of [...] Contrast Arlyn Gutierrez CNP [address] [place] [id number] Referral ID Status Reason Start Date Expiration Date V isits Requested Visits Authorized [id number] New Request 11/09/2021 11/09/2022 1 1 Additional Source Comments INFORMATION SOURCE (unrecogn ized section and content) DATE CREATED AUTHOR AUTHOR'S ORGANIZ ATION 01/18/2018 [facility] DATE CREATED AUTHOR AUTHOR'S ORGANIZ ATION 03/29/2018 [facility] DATE CREATED AUTHOR AUTHOR'S ORGANIZ ATION 04/15/2020 [facility] DATE CREATED AUTHOR AUTHOR'S ORGANIZ ATION 10/04/2020 [facility] DATE CREATED AUTHOR AUTHOR'S ORGANIZ ATION 06/13/2021 [facility] DATE CREATED AUTHOR AUTHOR'S ORGANIZ ATION 10/29/2021 [facility] DATE CREATED AUTHOR AUTHOR'S ORGANIZ ATION 12/04/2022 [facility] DATE CREATED AUTHOR AUTHOR'S ORGANIZ ATION 07/31/2023 [facility] DATE CREATED AUTHOR AUTHOR'S ORGANIZ ATION 08/14/2023 [facility] Ambulatory Reason for Visit (unrecogniz ed [...] Care Teams (unrecognized sec tion and content) Brand Ambassador Promotional Model Relationship Specialty Start Date End Date Arlyn Gutierrez CNP PCP - General Nurse Practitioner 11/06/17 Brand Ambassador Promotional Model Relationship Specialty Start Date End Date Arlyn Gutierrez CNP PCP - General Nurse Practitioner 11/06/17 Brand Ambassador Promotional Model Relationship Specialty Start Date End Date Arlyn [...] BE BASED ON THE PRIMARY CLINICAL RECORDS. [facility]. provides no warranty or guarantee of the accuracy or completeness of information in this document.
[2023-08-31] MEDS: 0.9% NaCl Peripheral Flush Adult/Peds IV (09:03)
[2023-08-31] MEDS: 0.9% NaCl IVPB Med Flush (250 mL) 15 ML IV (09:04)
[2023-08-31 09:06] VITALS: BP 150/79; PULSE 78; RESP 16; TEMP 36; O2SAT 100; BMI 45.1
[2023-08-31] MEDS: Iron Sucrose Complex 300 MG in 0.9% Normal Saline (250mL Bag) 250 ML 176.699999999999989 MG IV (09:13)
[2023-08-31 11:24] VITALS: BP 139/77; PULSE 72; RESP 16; TEMP 36.2; O2SAT 98
== END 2023-08-31 08:43 | disposition home or self-care (01) ==
LOC: MEDOUTP 08:43
PROVIDERS: PCP Internal Medicine; Referring Provider Nurse Practitioner; Visit Provider Nurse Practitioner
DX: D50.9 Iron deficiency anemia, unspecified (principal)
CPT/HCPCS: 96365; 96366; J1756; J7050; A4216

== ENCOUNTER 2023-09-04 10:55 | Outpatient (CLI) | payer BC, SELFPAY ==
[2023-09-04 11:08] VITALS: BP 149/78; PULSE 84; RESP 16; TEMP 36.2; O2SAT 98; BMI 45.1
[2023-09-04] MEDS: Iron Sucrose Complex 300 MG in 0.9% Normal Saline (250mL Bag) 250 ML 177 MG IV (11:14)
[2023-09-04] MEDS: 0.9% NaCl IVPB Med Flush (250 mL) 15 ML IV (11:14)
[2023-09-04] MEDS: 0.9% NaCl Peripheral Flush Adult/Peds IV (11:14)
[2023-09-04 13:11] VITALS: BP 123/54; PULSE 83; RESP 16; TEMP 36.5; O2SAT 98
== END 2023-09-04 10:56 | disposition home or self-care (01) ==
LOC: MEDOUTP 10:55
PROVIDERS: PCP Internal Medicine; Referring Provider Nurse Practitioner; Visit Provider Nurse Practitioner
DX: D50.9 Iron deficiency anemia, unspecified (principal)
CPT/HCPCS: 96365; 96366; J1756; J7050; A4216

== ENCOUNTER 2023-09-13 08:44 | Outpatient (CLI) | payer BC, SELFPAY ==
[2023-09-13 09:04] VITALS: BP 143/73; PULSE 79; RESP 16; TEMP 36.5; O2SAT 98; BMI 45.1
[2023-09-13] MEDS: 0.9% NaCl Peripheral Flush Adult/Peds IV (09:04)
--- OUTSIDE RECORDS SUMMARY | 2023-09-13 09:06 | XMS RPT_ITS | CCD ---
Author Name Unknown Address [address] [place] [address] Organization [facility] Care Team Providers Care Clinical Nursing Manager Name Role Phone Arlyn Gutierrez Unavailable Gutierrez [...] Unav ailable GutierrezArlyn sanchez Primary Care Provider [phone] ARLYN GUTIERREZ Admitting Unavailable GUTIERREZARLYN SANCHEZ Primary [...] to adverse reactions to drug 05-22-20 12 [facility] (19 sources) penicillin; Translations: [penicillin] Propensity to adverse reactions to drug 08-13-19 24 [facility] (17 sources) penicillin g; Translations: [PENICILLIN G] Propensity to adverse reactions to drug 06-07-20 11 [facility] (13 sources) Penicillins; Translations: [PENICILLINS] Propensity to adverse reactions to drug [facility] (17 sources) sulfamethoxazole / trimethoprim; Translations: [SULFAMETHOXAZOLE-T RIMETHOPRIM] Propensity to adverse reactions to drug [facility] (14 sources) Sulfonamides (Antibiotic); Translations: [SULFA (SULFONAMIDE ANTIBIOTICS)] Propensity to adverse reactions to drug 06-07-20 11 [facility] (3 sources) Sulfonamides (Antibiotic); Translations: [sulfa drugs] Propensity to adverse reactions to drug (disorder) AOF, Hives/Urticari a [facility] (2 sources) Penicillin Drug Allergy Hives/Urticari a [facility] (4 sources) Penicillins Propensity to adverse reactions to drug [facility] (4 sources) Sulfonamides (Antibiotic) Propensity to adverse reactions to drug 06-07-20 11 [facility] (1 source) ALLERGIES NOT ON [...] Drug Class(es) Dates Sig (Normalized) Sig (Original) [id number] 200 actuat albuterol 0.09 mg/actuat metered dose [...] Body height 168 cm Text Entry [facility] 10-25-2021 [id number] Body temperature 97.88 [degF] Text Entry [facility] 10-25-2021 13:26-0400 Diastolic blood pressure 78 mm[Hg] Text Entry [facility] 10-25-2021 13:26-0400 Heart rate 74 /min Text Entry [facility] 10-25-2021 13:26-0400 SaO2% (BldA) [Mass fraction] 96 % Text Entry [facility] 10-25-2021 13:26-0400 Systolic blood pressure 129 mm[Hg] Text Entry [facility] 06-13-2021 10:48-0500 Body height 167.6 cm Arlyn Gutierrez [employer]OL[employer] COLLECTOR Work Phone: [facility] 06-13-2021 10:48-0500 Body mass index (BMI) [Ratio] 44.55 kg/m2 Arlyn Gutierrez [employer] COLLECTOR Work Phone: [facility] 06-13-2021 10:48-0500 Body temperature 97.39 [degF] Arlyn Gutierrez [employer] COLLECTOR Work Phone: [facility] 06-13-2021 10:48-0500 Body weight 125.19 kg Arlyn iYnon [employer] COLLECTOR Work Phone: [facility] 06-13-2021 10:48-0500 Diastolic blood pressure 77 mm[Hg] Arlyn Gutierrez [employer] COLLECTOR Work Phone: [facility] 06-13-2021 10:48-0500 Heart rate 79 /min Arlyn Gutierrez [employer]OLLEY COLLECTOR Work Phone: [facility] 06-13-2021 10:48-0500 Respiratory rate 16 /min Arlyn Gutierrez [employer]OL[employer] COLLECTOR Work Phone: [facility] 06-13-2021 10:48-0500 SaO2% (BldA) [Mass fraction] 98 % Arlyn Gutierrez [employer] COLLECTOR Work Phone: [facility] 06-13-2021 10:48-0500 Systolic blood pressure 122 mm[Hg] Arlyn Gutierrez [employer]OL[employer] COLLECTOR Work Phone: [facility] 05-05-2021 23:30-0400 Diastolic blood pressure 83 mm[Hg] Text Entry [facility] 05-05-2021 23:30-0400 Heart rate 63 /min Text Entry [facility] 05-05-2021 23:30-0400 Respiratory rate 16 /min Text Entry [facility] 05-05-2021 23:30-0400 SaO2% (BldA) [Mass fraction] 98 % Text Entry [facility] 05-05-2021 23:30-0400 Systolic blood pressure 151 mm[Hg] Text Entry [facility] 05-05-2021 17:39-0400 Body height 167.6 cm Text Entry [facility] 05-05-2021 17:39-0400 Body temperature 98.06 [degF] Text Entry [facility] 05-05-2021 17:39-0400 Body weight 113.6 kg Text Entry [facility] 05-25-2020 15:46-0500 BP Diastolic 91 mm[Hg] Arlyn Gutierrez [facility] 05-25-2020 15:46-0500 BP Systolic 159 mm[Hg] Arlyn Gutierrez [facility] 05-25-2020 15:40-0500 BMI (Body Mass Index) 42.61 kg/m2 Arlyn Gutierrez [facility] 05-25-2020 15:40-0500 Body Temperature 98.1 [degF] Arlyn Gutierrez [facility] 05-25-2020 15:40-0500 Body weight 119.75 kg Arlyn Gutierrez [facility] 05-25-2020 15:40-0500 Height 167.6 cm Arlyn Gutierrez [facility] 05-25-2020 15:40-0500 Pulse (Heart Rate) 79 /min Arlyn Gutierrez [facility] 05-25-2020 15:40-0500 Pulse Oximetry 98 % Arlyn Gutierrez [facility] 05-25-2020 15:40-0500 Respiratory Rate 16 /min Arlyn Gutierrez [facility] 11-14-2018 10:08-0400 BMI (Body Mass Index) 39.22 kg/m2 [facility] 11-14-2018 10:08-0400 Body Temperature 97.9 [degF] [facility] 11-14-2018 10:08-0400 BP Diastolic 81 mm[Hg] [facility] 11-14-2018 10:08-0400 BP Systolic 127 mm[Hg] [facility] 11-14-2018 10:08-0400 Height 167.6 cm [facility] 11-14-2018 10:08-0400 Pulse (Heart Rate) 78 /min [facility] 11-14-2018 10:08-0400 Pulse Oximetry 96 % [facility] 11-14-2018 10:08-0400 Respiratory Rate 14 /min [facility] 11-14-2018 10:08-0400 Weight 110.22 kg [facility] 12-04-2017 11:37-0400 BMI (Body Mass Index) 41.64 [...] 14:20-0400 Weight 117.3 kg Edin Noriega [facility] 11-15-2017 14:41-0400 BP Diastolic 90 mm[Hg] Arlyn Gutierrez [facility] 11-15-2017 14:41-0400 BP Systolic 140 mm[Hg] Arlyn Gutierrez [facility] 11-15-2017 14:41-0400 Pulse (Heart Rate) 96 /min Arlyn Gutierrez [facility] 11-15-2017 14:41-0400 Weight 117.48 kg Arlyn Gutierrez [facility] Encounters Encounter Date Encounter Type Care Provider Facility Start: 08-13-2023 End: 08-13-2023 ambulatory [facility] Start: 07-27-2023 End: 07-28-2023 ambulatory SCARLETT Cordoba [facility] Start: 12-03-2022 End: 12-03-2022 Emergency department patient visit [facility] Start: 11-09-2021 Orders Only Arlyn Avendano Cynthia erson [employer]OLLEY COLLECTOR Work Phone: [facility] Procedures Date [...] Vaccine (1) COVID-19 Vaccin e (1) [facility] Payers Date Payer Category Payer Unknown [id number] 2021 Unknown 2021 Unknown [id number] 2017 Private Health Insurance 2017 Unknown [id number] 1975 Unknown [id number] 1975 Unknown [id number] 1977 Unknown [id number] 1977 Unknown [id number] 1977 Unknown [id number] [id number] Social History Date Type Detail Facility Start: 11-15-2017 End: 12-04-2017 Tobacco smoking status UTIS Never smoker [facility] Start: 1975 Sex Assigned At Not on file [facility] Start: 11-15-2017 End: 05-25-2020 Tobacco use and exposure Never used [facility] Start: 05-25-2020 End: 06-13-2021 Alcohol intake Current non-drinker of alcohol (finding) [facility] Start: 12-17-2019 End: 05-25-2020 History SDOH Social Connections Get Together 2 [facility] Start: 05-25-2020 History SDOH [facility] Start: 12-17-2019 End: 05-25-2020 History SDOH Food Worry 1 [facility] Exposure to SARS-CoV -2 (event) Not sure [facility] Tobacco smoking consumption unknown [facility] Exposure to SARS-CoV -2 (event) Yes [facility] Note 06-13-2021 Assessment & Plan Note [...] nodules Lung nodules seen on CT at [facility] when diagnosed with Covid. Most likely from Covid but to have repeat scan to make sure. Will obtain ER records and proceed from there. Associated Problem(s): COVID-19 covid infection in April 2021 and presented to [place] [facility]. She still endorses fatigue and shortness of breath with moderate activity but getting better. documented in this encounter [facility] Instructions 06-13-2021 Patient Instructions Note Date [...] nodules Lung nodules seen on CT at [facility] when diagnosed with Covid. Most likely from Covid but to have repeat scan to make sure. Will obtain ER records and proceed from there. COVID-19 covid infection in April 2021 and presented to [place] [facility]. She still endorses fatigue and shortness [...] Log into your personal health record on https://[employer] and enter P072 in the Education box to learn more about Well Visit, Ages 18 to 50: Care Instructions. Current as of: September 02, 2020 Content Version: 13.0 [employer] Care instructions adapted under license by your healthcare professional. If you have questions about a medical condition or this instruction, always ask your healthcare professional. [employer] disclaims any warranty or liability for your use of this information. documented in this encounter [facility] History of Present illness Narrative 06-13-2021 Arlyn Gutierrez CNP - 06/13/2021 11:00 AM EST Note Date & Type Note Facility 06-13-2021 History of Presen t illness Narrative OFFICE VISIT PROGRESS NOTE HPI Wellness Exam HTN- well controlled in office today, no changes required Anxiety/depression-sertraline working well controlling her symptoms. Covid + @ 1 month ago went to [place] [facility] and was told she had multiple [...] nodules Lung nodules seen on CT at [facility] when diagnosed with Covid. Most likely from Covid but to have repeat scan to make sure. Will obtain ER records and proceed from there. COVID-19 covid infection in April 2021 and presented to [place] [facility]. She still endorses fatigue and shortness [...] the medications. documented in this encounter [facility] Note 06-06-2021 Telephone Encounter - Zoe [...] medication refill for sertraline (ZOLOFT) 50 MG [id number] / Sig - Route: Take 1 (one) tablet (50 mg total) by mouth daily . - Oral Sent to pharmacy as: sertraline 50 mg tablet (ZOLOFT) E-Prescribing Status: Receipt confirmed by pharmacy (05/19/2021 4:15 PM EDT) . labetaloL (NORMODYNE) 200 MG [id number] Sig - Route: Take 2 (two) tablets [...] preferred pharmacy listed below? Yes Preferred pharmacies: [facility] [address] [place], [place] [id number] Pt Call Back Number Patient call back message sent to the [facility]. Eleanor Ortiz documented in this encounter [facility] Note 05-19-2021 Telephone Encounter - Monica Hewitt [...] preferred pharmacy listed below? Yes Preferred pharmacies: [facility] [address] [place], [place] [id number] Pt Call Back Number Work Phone Not on file. Note: pt requested refill on 05-16-21. Still has not been refilled. Pt. Has no medication on hand. Patient call back message sent to the [facility]. Tarsha Witt documented in this encounter [facility] Evaluation note Note Date & Type Note Facility documented in this encounter [facility] Evaluation note Note Date & Type Note Facility documented in this encounter [facility] Evaluation note Note Date & Type Note Facility documented in this encounter [facility] Evaluation note Note Date & Type [...] Log into your personal health record on https://[employer] and enter X567 in the Education box to learn more about High Blood Pressure: Care Instructions. Current as of: June 27, 2017 Content Version: 05.28 [employer] Care instructions adapted under license by your healthcare professional. If you have questions about a medical condition or this instruction, always ask your healthcare professional. [employer] disclaims any warranty or liability for your [...] irregular heartbeat. After you call 911, the keying machine operator may tell you to chew [...] Log into your personal health record on https://[employer] and enter A120 in the Education box to learn more about Chest Pain: Care Instructions. Current as of: June 11, 2017 Content Version: .[id number] [employer] Care instructions adapted under license by your healthcare professional. If you have questions about a medical condition or this instruction, always ask your healthcare professional. [employer] 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 documented in this encounter* Arlyn Gutierrez CNP [...] file Gets together: Once a week Attends bahai service: Not on file Active member of [...] Contrast Arlyn Gutierrez CNP [address] [place] [id number] Referral ID Status Reason Start Date Expiration Date V isits Requested Visits Authorized [id number] New Request 11/09/2021 11/09/2022 1 1 Additional Source Comments INFORMATION SOURCE (unrecogn ized section and content) DATE CREATED AUTHOR AUTHOR'S ORGANIZ ATION 01/18/2018 [facility] DATE CREATED AUTHOR AUTHOR'S ORGANIZ ATION 03/29/2018 [facility] DATE CREATED AUTHOR AUTHOR'S ORGANIZ ATION 04/15/2020 [facility] DATE CREATED AUTHOR AUTHOR'S ORGANIZ ATION 10/04/2020 [facility] DATE CREATED AUTHOR AUTHOR'S ORGANIZ ATION 06/13/2021 [facility] DATE CREATED AUTHOR AUTHOR'S ORGANIZ ATION 10/29/2021 [facility] DATE CREATED AUTHOR AUTHOR'S ORGANIZ ATION 12/04/2022 [facility] DATE CREATED AUTHOR AUTHOR'S ORGANIZ ATION 07/31/2023 [facility] DATE CREATED AUTHOR AUTHOR'S ORGANIZ ATION 08/14/2023 [facility] Reason for Visit (unrecogniz ed section [...] Care Teams (unrecognized sec tion and content) Clinical Nursing Manager Relationship Specialty Start Date End Date Arlyn Gutierrez CNP PCP - General Nurse Practitioner 11/06/17 Clinical Nursing Manager Relationship Specialty Start Date End Date Arlyn Gutierrez CNP PCP - General Nurse Practitioner 11/06/17 Clinical Nursing Manager Relationship Specialty Start Date End Date Arlyn [...] BE BASED ON THE PRIMARY CLINICAL RECORDS. [facility] [employer] [facility]. provides no warranty or guarantee of the accuracy or completeness of information in this document.
[2023-09-13] MEDS: Iron Sucrose Complex 300 MG in 0.9% Normal Saline (250mL Bag) 250 ML 177 MG IV (09:28)
[2023-09-13] MEDS: 0.9% NaCl IVPB Med Flush (250 mL) 15 ML IV (09:28)
[2023-09-13 11:23] VITALS: BP 122/61; PULSE 78; RESP 16
== END 2023-09-13 08:45 | disposition home or self-care (01) ==
LOC: MEDOUTP 08:45
PROVIDERS: PCP Internal Medicine; Referring Provider Nurse Practitioner; Visit Provider Nurse Practitioner
DX: D50.9 Iron deficiency anemia, unspecified (principal)
CPT/HCPCS: 96365; 96366; J1756; J7050; A4216

== ENCOUNTER → 2023-10-15 | Outpatient (CLI) | payer BC, SELFPAY ==
--- NOTE | 2023-10-15 13:21 | BI_ITS ---
MAMMOGRAPHY - BILATERAL SCREENING REASON FOR EXAM: Female, 47 years old. Routine annual screening examination. PERTINENT HISTORY: Grandmothers with breast cancer. TECHNIQUE: Digital bilateral breast estephanie (3D mammographic acquisition) in the CC and MLO projections. 2-D mediolateral oblique (MLO) and craniocaudad (CC) views of both breasts were obtained. CAD: Full Field Digital Mammography with Computer Added Detection was performed. COMPARISON: Comparison is made with prior study dated October 05, 2022. FINDINGS: Breast Composition: There are scattered areas of fibroglandular density. There are no dominant masses or suspicious calcifications. Stable bilateral fat containing axillary lymph nodes. No other significant abnormalities are identified. There has been no significant change since the prior study. BI/SCRN MAMM (CAD)W/ESTEPHANIE BILAT IMPRESSION: Stable bilateral screening mammogram. Yearly follow-up mammogram recommended. (A) ASSESSMENT CATEGORY: BIRADS Category 2: Benign. A letter regarding these results will be sent to the patient by the facility within 30 days. Approximately 10% of breast cancers are not detected by mammography. A normal mammogram should not delay biopsy of a clinically suspicious abnormality. [id number] Electronically Signed: Pawel Smith MD at 15:01 EDT ,
== END | disposition home or self-care (01) ==
PROVIDERS: PCP Internal Medicine; Referring Provider Surgery; Visit Provider Nurse Practitioner
DX: Z12.31 Encounter for screening mammogram for malignant neoplasm of breast (principal); Z80.3 Family history of malignant neoplasm of breast
CPT/HCPCS: 77063; 77067

== ENCOUNTER → 2023-10-27 | Outpatient (CLI) | payer BC, SELFPAY ==
[2023-10-27 07:28] LABS: Absolute Lymphocyte Count 1.92 X10^3/uL (0.83-4.51); Absolute Neutrophil Count 5.3 X10^3/uL (2.0-7.7); Basophil# 0.07 X10^3/uL; Basophil% 0.8 % (0-1); Eosinophils% 2.4 % (0-5); Hematocrit 36.3 % (37-47); Hemoglobin 11.9 g/dL (12.0-15.0); Lymphocyte # 1.92 X10^3/ul (0.83-4.51); Mean Corp Hgb Conc 32.8 g/dL (32-36); Mean Corpuscular Hgb 27.6 pg (27.0-32.0); Mean Corpuscular Volume 84.2 fL (81-99); Mean Platelet Vol. 10.1 fl (6.2-12.0); Monocyte# 0.88 X10^3/uL; Monocyte% 10.6 % (0-10); NRBC Flagged by Analyzer 0 % (0-5); Neutrophil # 5.25 X10^3/uL (2.7-7.7); Platelet Count 276 K/mm3 (150-450); RBC Distribution Width CV 17.3 % (11.6-14.6); RBC Distribution Width SD 53.8 fl (35.1-43.9); Red Blood Count 4.31 M/mm3 (4.2-5.4); White Blood Count 8.3 K/mm3 (4.4-11.0)
[2023-10-27 08:25] LABS: Ferritin 49 ng/mL (8-252); Iron 45 ug/dL (50-170); Iron Binding Capacity,Total 428 ug/dL (250-450)
== END | disposition home or self-care (01) ==
PROVIDERS: PCP Internal Medicine; Referring Provider Nurse Practitioner; Visit Provider Nurse Practitioner
DX: D64.9 Anemia, unspecified (principal)
CPT/HCPCS: 36415; 82728; 83540; 83550; 85025

== ENCOUNTER → 2023-12-06 | Outpatient (CLI) | payer BC, SELFPAY ==
[2023-12-06 12:27] LABS: Absolute Lymphocyte Count 1.44 X10^3/uL (0.83-4.51); Basophil# 0.06 X10^3/uL; Eosinophil# 0.16 X10^3/uL; Eosinophils% 2.6 % (0-5); Hematocrit 36.7 % (37-47); Hemoglobin 12.1 g/dL (12.0-15.0); Lymphocyte # 1.44 X10^3/ul (0.83-4.51); Mean Corpuscular Hgb 28.3 pg (27.0-32.0); Mean Corpuscular Volume 85.7 fL (81-99); Mean Platelet Vol. 10.3 fl (6.2-12.0); Monocyte# 0.55 X10^3/uL; Monocyte% 8.8 % (0-10); NRBC Flagged by Analyzer 0 % (0-5); Neutrophil # 4.04 X10^3/uL (2.7-7.7); Neutrophil % 64.3 % (47-70); Platelet Count 318 K/mm3 (150-450); RBC Distribution Width CV 14.8 % (11.6-14.6); RBC Distribution Width SD 46.5 fl (35.1-43.9); Red Blood Count 4.28 M/mm3 (4.2-5.4); White Blood Count 6.3 K/mm3 (4.4-11.0)
[2023-12-06 13:01] LABS: Ferritin 16 ng/mL (8-252); Iron 51 ug/dL (50-170); Iron Binding Capacity,Total 398 ug/dL (250-450)
== END | disposition home or self-care (01) ==
LOC: LAB 11:40
PROVIDERS: PCP Internal Medicine; Referring Provider Nurse Practitioner; Visit Provider Nurse Practitioner
DX: N92.0 Excessive and frequent menstruation with regular cycle (principal); D64.9 Anemia, unspecified
CPT/HCPCS: 36415; 82728; 83540; 83550; 85025